=== PATIENT | male | born 1985 | race African-American/Black ===

== ENCOUNTER 2016-09-03 13:35 | Emergency (ER) | payer MEDICAID, OTHER ==
[~2016-09-03] VITALS: Ht 182.9 cm; Wt 79.4 kg
[~2016-09-03 13:35] MED LIST: UNOBMED
[2016-09-03 13:36] VITALS: BP 109/68
[2016-09-03 14:18] VITALS: BP 112/61
[2016-09-03 16:04] VITALS: BP 112/61
--- NOTE | 2016-09-03 21:57 | Emergency Room Report ---
History of Present Illness General Chief Complaint: General Complaint Source: EMS Present Illness HPI The patient is a 31-year-old male brought in by ambulance for possible overdose. The patient states he took an unknown number and unknown names of medications. The patient denies wanting to hurt himself. The patient stated " my body system is operating a 10%". The patient denies any pain and denies other symptoms including nausea, vomiting, headache, dizziness, blurred vision, fatigue, chest pain, shortness of breath Allergies: Uncoded Allergies: CODEINE (Allergy, Unknown, 09/03/16) Patient History Past Medical History: see triage record Pertinent Family History: none Reviewed Nursing Documentation: PMH: Agreed, PSxH: Agreed Review of Systems All Other Systems: negative except mentioned in HPI Physical Exam Vital Signs Date Time Temp Pulse Resp B/P Pulse Ox O2 Delivery O2 Flow Rate FiO2 09/03/16 13:27 116 18 109/68 98 Room Air Sp02 EP Interpretation: reviewed, normal General Appearance: no apparent distress, alert, GCS 15, non-toxic Head: normocephalic, atraumatic Eyes: bilateral eye PERRL, bilateral eye normal inspection ENT: hearing grossly normal, normal pharynx, no angioedema, normal voice Respiratory: chest non-tender, lungs clear, normal breath sounds, speaking full sentences Cardiovascular #1: regular rate, rhythm, no edema Gastrointestinal: normal bowel sounds, non tender, soft, non-distended, no guarding, no rebound Musculoskeletal: back normal, gait/station normal, normal range of motion, non- tender Neurologic: alert, responsive, sensory intact, normal gait Psychiatric: memory normal, no suicidal/homicidal ideation Skin: normal color, no rash, warm/dry, well hydrated Lymphatic: no adenopathy Medical Decision Making PA Attestation Dr. Gunderson is my supervising physician. Patient management was discussed with my supervising physician Diagnostic Impression: Primary Impression: Psychosis ER Course The patient is a 31-year-old male brought in by ambulance for possible overdose Differential diagnoses considered but not limited to suicidal ideation, homicidal ideation, depression, Overdose Physical exam: Afebrile. No apparent distress. Patient is resting comfortably on gurney. HEENT exam is unremarkable Lungs are clear to auscultation bilaterally Abdomen is soft and nontender. No guarding Normal gait The patient is given time to rest in the emergency department and is feeling much better and is more alert and oriented. Patient states he is feeling nauseous and is given Zofran. Upon reevaluation, the patient has eloped Last Vital Signs Date Time Temp Pulse Resp B/P Pulse Ox O2 Delivery O2 Flow Rate FiO2 09/03/16 16:04 18 112/61 98 Room Air 09/03/16 13:27 116 Status: improved Disposition: ELOPED Condition: Unknown Referrals: [facility] (PCP) BLANCA CHAPPELL Sep 03, 2016 21:57
== END 2016-09-03 16:30 | disposition left against medical advice (07) ==
LOC: EDBD 13:35 → EMR 14:02
DX: F23 Brief psychotic disorder (principal); Z88.6 Allergy status to analgesic agent
CPT/HCPCS: 80300; 99282

== ENCOUNTER 2016-09-07 18:39 | Inpatient (IN) | payer MEDICAID, OTHER ==
[~2016-09-07] VITALS: Ht 185.4 cm; Wt 82.6 kg
[2016-09-07 19:06] VITALS: BP 84/48
[2016-09-07 20:13] LABS: BASOPHILS % (AUTO) 1.4 % (0.0-2.0); EOSINOPHILS % (AUTO) 0.7 % (0.0-3.0); LYMPHOCYTES % (AUTO) 22.7 % (20.0-45.0); MEAN CORPUSCULAR HGB CONC 30.4 G/DL (32.0-36.0); MEAN CORPUSCULAR VOLUME 79 FL (80-99); MEAN PLATELET VOLUME 6.2 FL (6.5-10.1); MONOCYTES % (AUTO) 8.9 % (1.0-10.0); NEUTROPHILS % (AUTO) 66.3 % (45.0-75.0); PLATELET COUNT 305 K/UL (150-450); RED BLOOD COUNT 4.48 M/UL (4.70-6.10); RED CELL DISTRIBUTION WIDTH 13.8 % (11.6-14.8); WHITE BLOOD COUNT 6.2 K/UL (4.8-10.8)
[2016-09-07 20:17] LABS: ALANINE AMINOTRANSFERASE 69 U/L (3-41); ALBUMIN/GLOBULIN RATIO 0.9 (1.0-2.7); ANION GAP 13 (5-15); ASPARTATE AMINO TRANSFERASE 43 U/L (5-40); CALCIUM 8.7 mg/dL (8.6-10.2); CARBON DIOXIDE 24 mEQ/L (20-30); CHLORIDE 101 mEQ/L (98-107); CREATININE 1.3 mg/dL (0.7-1.2); GLOMERULAR FILTRATION RATE > 60 mL/min (>60); HEMOLYSIS 23; LIPASE 26 U/L (< 60); POTASSIUM 4.5 mEQ/L (3.4-4.9); SODIUM 138 mEQ/L (135-145); TOTAL PROTEIN 6.1 g/dL (6.6-8.7)
[2016-09-07 20:18] LABS: TROPONIN I < 0.30 ng/mL (<=0.30)
[2016-09-07 20:20] LABS: INR 1.2 (0.9-1.1)
[2016-09-07 21:15] VITALS: BP 135/107
[2016-09-07] MEDS ORDERED: Nitroglycerin Subl 0.4mg tab (Bottle Of 25) SL PRN (21:15)
[2016-09-07] MEDS ORDERED: Mylanta II UD 30ml ORAL PRN (21:15)
[2016-09-07] MEDS ORDERED: Miralax 17gm pkt ORAL PRN (21:15)
[2016-09-07 21:38] LABS: APPEARANCE,URINE CLEAR; KETONES,URINE NEGATIVE (NEGATIVE); LEUKOCYTE ESTERASE ,URINE 1+ (NEGATIVE); NITRITE,URINE NEGATIVE (NEGATIVE); PH,URINE 7 (4.5-8.0); PROTEIN,URINE 2+ (NEGATIVE); UROBILINOGEN,URINE 4 MG/DL (0.0-1.0)
[2016-09-07] MEDS: D5 1/2NS 1,000 ML IV SCH (21:41)
[2016-09-07] MEDS: Morphine Sulfate 2mg/ml Inj IVP PRN (21:42)
[2016-09-07 21:43] LABS: BACTERIA,URINE FEW /HPF; RBC,URINE 0-2 /HPF (0 - 0)
--- NOTE | 2016-09-07 22:34 | Emergency Room Report ---
History of Present Illness General Chief Complaint: Chest Pain Source: Patient Present Illness HPI Patient is a 31-year-old male who presented after increased dizziness and chest pain. Patient reports having prior history of cardiomyopathy. He states he takes diuretics. He does not know why he had heart disease. He states that he had been having severe abdominal cramping. This had occurred for the past few days. He denied black or bloody stools. He had not been having any diarrhea. The patient denies any drug use.He denies prior history of alcohol or drug use. Allergies: Uncoded Allergies: CODEINE (Allergy, Unknown, 09/03/16) Patient History Past Medical History: see triage record Reviewed Nursing Documentation: PMH: Agreed, PSxH: Agreed Nursing Documentation-PMH Hx Asthma: Yes Review of Systems All Other Systems: negative except mentioned in HPI Physical Exam Vital Signs Date Time Temp Pulse Resp B/P Pulse Ox O2 Delivery O2 Flow Rate FiO2 09/07/16 18:59 99.0 111 32 84/48 99 Room Air Sp02 EP Interpretation: reviewed, normal General Appearance: normal inspection, alert, GCS 15, non-toxic, mild distress Head: atraumatic ENT: normal ENT inspection, hearing grossly normal, normal voice Neck: normal inspection, full range of motion, supple, no bony tend Respiratory: normal inspection, lungs clear, normal breath sounds, no respiratory distress, no retraction, no wheezing Cardiovascular #1: regular rate, rhythm, no edema Gastrointestinal: normal inspection, normal bowel sounds, non tender, soft, no guarding, no hernia Genitourinary: no CVA tenderness Musculoskeletal: normal inspection, back normal, normal range of motion Neurologic: normal inspection, alert, oriented x3, responsive, punch finisher III-XII nml as tested, motor strength/tone normal, speech normal Psychiatric: normal inspection, judgement/insight normal, mood/affect normal Skin: normal inspection, normal color, no rash Medical Decision Making Diagnostic Impression: Primary Impression: Chest pain Additional Impression: Hypotension ER Course Patient presented for chest and abdominal pain.Patient presented for abdominal pain. Differential diagnoses included ischemic bowel, appendicitis, perforated viscus, abdominal aortic aneurysm, inferior myocardial infarction, viral gastroenteritis. Because of complexity of patient's case laboratory testing and imaging studies were ordered. The patient was noted to be initially hypotensive. Patient started on IV fluids. Chest x-ray one view interpreted by me showed the enlarged cardiac silhouette without evident infiltrate. Mediastinum appeared normal. There is no evident pneumothorax.Patient was discussed with Dr. gayle for inpatient management due to patient's hypotension and abdominal pain. CT imaging was ordered but will not be performed at this time do to machine malfunction Labs Test 09/07/16 19:44 09/07/16 20:40 White Blood Count 6.2 K/UL (4.8-10.8) Red Blood Count 4.48 M/UL (4.70-6.10) Hemoglobin 10.8 G/DL (14.2-18.0) Hematocrit 35.3 % (42.0-52.0) Mean Corpuscular Volume 79 FL (80-99) Mean Corpuscular Hemoglobin 24.0 PG (27.0-31.0) Mean Corpuscular Hemoglobin Concent 30.4 G/DL (32.0-36.0) Red Cell Distribution Width 13.8 % (11.6-14.8) Platelet Count 305 K/UL (150-450) Mean Platelet Volume 6.2 FL (6.5-10.1) Neutrophils (%) (Auto) 66.3 % (45.0-75.0) Lymphocytes (%) (Auto) 22.7 % (20.0-45.0) Monocytes (%) (Auto) 8.9 % (1.0-10.0) Eosinophils (%) (Auto) 0.7 % (0.0-3.0) Basophils (%) (Auto) 1.4 % (0.0-2.0) Prothrombin Time 12.0 SEC (9.30-11.50) Prothromb Time International Ratio 1.2 (0.9-1.1) Activated Partial Thromboplast Time 24 SEC (23-33) Sodium Level 138 mEQ/L (135-145) Potassium Level 4.5 mEQ/L (3.4-4.9) Chloride Level 101 mEQ/L (98-107) Carbon Dioxide Level 24 mEQ/L (20-30) Anion Gap 13 (5-15) Blood Urea Nitrogen 21 mg/dL (7-23) Creatinine 1.3 mg/dL (0.7-1.2) Estimat Glomerular Filtration Rate > 60 mL/min (>60) Glucose Level 113 mg/dL (74-106) Calcium Level 8.7 mg/dL (8.6-10.2) Total Bilirubin 0.4 mg/dL (0.0-1.2) Aspartate Amino Transf (AST/SGOT) 43 U/L (5-40) Alanine Aminotransferase (ALT/SGPT) 69 U/L (3-41) Alkaline Phosphatase 91 U/L (40-129) Troponin I < 0.30 ng/mL (<=0.30) Total Protein 6.1 g/dL (6.6-8.7) Albumin 2.9 g/dL (3.5-5.2) Globulin 3.2 g/dL Albumin/Globulin Ratio 0.9 (1.0-2.7) Lipase 26 U/L (< 60) Urine Color Yellow Urine Appearance Clear Urine pH 7 (4.5-8.0) Urine Specific [place] 1.010 (1.005-1.035) Urine Protein 2+ (NEGATIVE) Urine Glucose (UA) Negative (NEGATIVE) Urine Ketones Negative (NEGATIVE) Urine Occult Blood Negative (NEGATIVE) Urine Nitrite Negative (NEGATIVE) Urine Bilirubin Negative (NEGATIVE) Urine Urobilinogen 4 MG/DL (0.0-1.0) Urine Leukocyte Esterase 1+ (NEGATIVE) Urine RBC 0-2 /HPF (0 - 0) Urine WBC 2-4 /HPF (0 - 0) Urine Squamous Epithelial Cells None /LPF (NONE/OCC) Urine Bacteria Few /HPF (NONE) EKG Diagnostic Results Rate: normal Rhythm: NSR ST Segments: no acute changes Rhythm Strip Diag. Results EP Interpretation: yes Rhythm: NSR, no PVC's, no ectopy Chest X-Ray Diagnostic Results EP Interpretation: Yes Findings: no consolidation, no effusion, no pneumothorax, other - cm Number of Views: 1 Last Vital Signs Date Time Temp Pulse Resp B/P Pulse Ox O2 Delivery O2 Flow Rate FiO2 09/07/16 21:15 99.0 103 17 135/107 99 Room Air Status: unchanged Disposition: ADMITTED INPATIENT Condition: Serious Referrals: [facility] (PCP) Darien Denton Sep 07, 2016 22:34
[2016-09-07 22:58] VITALS: BP 98/52
[2016-09-08 00:58] VITALS: BP 120/56
[2016-09-08] MEDS: Morphine Sulfate 2mg/ml Inj IVP PRN ×5 (01:58→23:54)
[2016-09-08 02:00] VITALS: BP 100/60
[2016-09-08] MEDS: D5 1/2NS 1,000 ML IV SCH (02:23)
[2016-09-08] MEDS ORDERED: VENTOLIN HFA18 GM (03:08)
[2016-09-08] MEDS ORDERED: FUROSEMIDE20 M1 PO (03:08)
[2016-09-08] MEDS ORDERED: POTASSIUM CHLO10 ME3 PO (03:08)
[2016-09-08 08:33] VITALS: BP 108/72
--- NOTE | 2016-09-08 08:53 | Diagnostic Imaging Report ---
Indication: Abdominal pain Technique: Continuous helical transaxial imaging of the abdomen and pelvis was obtained from the lung bases to the pubic symphysis. No intravenous contrast was administered. Coronal 2-D reformats were also obtained. Total Dose length Product (DLP): [address] Dose Index Volume (CTDIvol): 14 mGy Comparison: none Findings: The appendix is identified and appears normal. There is generalized cardiomegaly. Mild, fine, reticular markings are noted at the periphery of the right lung base nonspecific. There is no nephrolithiasis or hydronephrosis demonstrated. There is thickening of the gallbladder wall. Suspect small stones within the gallbladder. There is no free fluid or free air. Impression: Limited study due to the absence of intravenous and oral contrast material. Thickening of the gallbladder wall. Possible stones. Please correlate clinically for cholecystitis. Normal appendix Reticular markings at the right lung base nonspecific. Acuity indeterminate. Prominent heart size. Please correlate clinically. [facility] has communicated the preliminary results to the Emergency Department. Their findings are largely concordant with this report. The CT scanner at [facility] is accredited by the [employer] [place] [employer] and the scans are performed using protocols designed to limit radiation exposure to as low as reasonably achievable to attain images of sufficient resolution adequate for diagnostic evaluation.
[2016-09-08] MEDS ORDERED: Heparin 5000 units/ml inj SUBQ SCH (09:00)
[2016-09-08 11:23] LABS: BASOPHILS % (AUTO) 0.9 % (0.0-2.0); EOSINOPHILS % (AUTO) 0.4 % (0.0-3.0); LYMPHOCYTES % (AUTO) 26.2 % (20.0-45.0); MEAN CORPUSCULAR HEMOGLOBIN 23.8 PG (27.0-31.0); MEAN CORPUSCULAR HGB CONC 30.3 G/DL (32.0-36.0); MEAN CORPUSCULAR VOLUME 78 FL (80-99); MEAN PLATELET VOLUME 6.2 FL (6.5-10.1); MONOCYTES % (AUTO) 10.4 % (1.0-10.0); NEUTROPHILS % (AUTO) 62.1 % (45.0-75.0); PLATELET COUNT 318 K/UL (150-450); RED BLOOD COUNT 4.65 M/UL (4.70-6.10); RED CELL DISTRIBUTION WIDTH 13.9 % (11.6-14.8); WHITE BLOOD COUNT 6.1 K/UL (4.8-10.8)
[2016-09-08 11:36] LABS: ALANINE AMINOTRANSFERASE 74 U/L (3-41); ALBUMIN/GLOBULIN RATIO 0.8 (1.0-2.7); AMYLASE 80 U/L (10-110); ANION GAP 12 (5-15); ASPARTATE AMINO TRANSFERASE 46 U/L (5-40); CALCIUM 8.6 mg/dL (8.6-10.2); CARBON DIOXIDE 23 mEQ/L (20-30); CHLORIDE 104 mEQ/L (98-107); GLOMERULAR FILTRATION RATE > 60 mL/min (>60); HEMOLYSIS 0; LIPASE 24 U/L (< 60); POTASSIUM 4.5 mEQ/L (3.4-4.9); SODIUM 139 mEQ/L (135-145); TOTAL PROTEIN 6.2 g/dL (6.6-8.7)
[2016-09-08 11:53] VITALS: BP 86/57
--- NOTE | 2016-09-08 12:01 | Diagnostic Imaging Report ---
Indication: Dyspnea Comparison: None A single view chest radiograph was obtained. Findings: Heart size is prominent. Lungs are clear with normal vascularity. Costophrenic angles are clear. Bones are unremarkable. Impression: Prominent heart size considering age of the patient. Please correlate clinically.
[2016-09-08 16:00] VITALS: BP 109/74
--- NOTE | 2016-09-08 16:15 | Diagnostic Imaging Report ---
Indication:Abdominal pain Technique: Grayscale and duplex Doppler imaging of the abdomen performed. Comparison: None Findings: The demonstrated part of the pancreas, gallbladder, aorta and IVC, spleen appear unremarkable. The liver is enlarged measuring about 20 cm. There is a subtle echogenic focus in the midpole the right kidney. This could be a angiomyolipoma or a focus of fat i.e. Renal scarring . There is no biliary ductal dilatation identified. CBD is 5 mm. Doppler evaluation of the main portal vein shows patency. There is no ascites. No hydronephrosis seen. Impression: Hepatomegaly Focus of scarring versus small angiomyolipoma in the midpole right kidney.
--- NOTE | 2016-09-08 16:47 | History and Physical ---
History of Present Illness General Date patient seen: Sep 08, 2016 Reason for Hospitalization: Chest Pain Present Illness HPI 31-year-old male with hx of cardiomyopathy presented to ER with CC of increased dizziness and chest pain. He does not know why he had heart disease. He states that he had been having severe abdominal cramping. He denied black or bloody stools. The patient denies any drug use.He denies prior history of alcohol or drug use. Allergies: Coded Allergies: CODEINE (Unverified Allergy, Unknown, 09/08/16) SHELLFISH DERIVED (Unverified Allergy, Unknown, 09/08/16) Uncoded Allergies: CODEINE (Allergy, Unknown, 09/03/16) SHELLFISH (Allergy, Unknown, 09/07/16) Medication History Scheduled Furosemide* (Lasix*), 20 MG PO BID, (Reported) Potassium Chloride (Potassium Chloride), 10 MEQ PO BID, (Reported) Scheduled PRN Albuterol Sulfate (Ventolin Hfa), 1 PUFF Q6HR PRN for PRN, (Reported) Miscellaneous Medications Unable to Obtain Medications (Unable To Obtain Meds), (Reported) Patient History Healthcare decision maker pt alert and oriented Resuscitation status Full Code Advanced Directive on File Past Medical/Surgical History Past Medical/Surgical History: (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 (2) Psychosis Review of Systems All Other Systems: negative except mentioned in HPI Physical Exam General Appearance: WD/WN Lines, tubes and drains: peripheral HEENT: normocephalic, atraumatic Neck: non-tender, normal alignment Respiratory/Chest: chest wall non-tender, lungs clear Cardiovascular/Chest: normal peripheral pulses Abdomen: normal bowel sounds Genitourinary/Rectal: normal genital exam Extremities: normal range of motion Skin Exam: normal pigmentation Neurologic: hoop maker machine II-XII grossly normal Last 24 Hour Vital Signs Date Time Temp Pulse Resp B/P Pulse Ox O2 Delivery O2 Flow Rate FiO2 09/08/16 16:00 96.8 110 19 109/74 96 Room Air 09/08/16 11:53 97.5 108 18 86/57 95 Room Air 09/08/16 11:26 108 09/08/16 08:33 97.0 108 18 108/72 96 Room Air 09/08/16 07:54 115 09/08/16 04:00 109 09/08/16 02:00 109 09/08/16 02:00 97.3 109 22 100/60 90 Room Air 09/08/16 00:58 99.1 103 24 120/56 99 Room Air 09/07/16 23:27 99.0 100 17 98/52 99 Room Air 09/07/16 22:58 99.0 100 17 98/52 99 Room Air 09/07/16 22:12 99.0 09/07/16 21:15 99.0 103 17 135/107 99 Room Air 09/07/16 19:06 111 32 Room Air 09/07/16 19:06 99.0 84 32 84/48 99 Room Air 09/07/16 18:59 99.0 111 32 84/48 99 Room Air Intake and Output 09/07/16 09/08/16 19:00 07:00 Intake Total 375 ml Output Total 200 ml Balance 175 ml Intake IV Total 375 ml Output Urine Total 200 ml # Voids 1 Laboratory Tests Test 09/07/16 19:44 09/07/16 20:40 09/08/16 10:40 White Blood Count 6.2 K/UL (4.8-10.8) 6.1 K/UL (4.8-10.8) Red Blood Count 4.48 M/UL (4.70-6.10) L 4.65 M/UL (4.70-6.10) L Hemoglobin 10.8 G/DL (14.2-18.0) L 11.1 G/DL (14.2-18.0) L Hematocrit 35.3 % (42.0-52.0) L 36.5 % (42.0-52.0) L Mean Corpuscular Volume 79 FL (80-99) L 78 FL (80-99) L Mean Corpuscular Hemoglobin 24.0 PG (27.0-31.0) L 23.8 PG (27.0-31.0) L Mean Corpuscular Hemoglobin Concent 30.4 G/DL (32.0-36.0) L 30.3 G/DL (32.0-36.0) L Red Cell Distribution Width 13.8 % (11.6-14.8) 13.9 % (11.6-14.8) Platelet Count 305 K/UL (150-450) 318 K/UL (150-450) Mean Platelet Volume 6.2 FL (6.5-10.1) L 6.2 FL (6.5-10.1) L Neutrophils (%) (Auto) 66.3 % (45.0-75.0) 62.1 % (45.0-75.0) Lymphocytes (%) (Auto) 22.7 % (20.0-45.0) 26.2 % (20.0-45.0) Monocytes (%) (Auto) 8.9 % (1.0-10.0) 10.4 % (1.0-10.0) H Eosinophils (%) (Auto) 0.7 % (0.0-3.0) 0.4 % (0.0-3.0) Basophils (%) (Auto) 1.4 % (0.0-2.0) 0.9 % (0.0-2.0) Prothrombin Time 12.0 SEC (9.30-11.50) H Prothromb Time International Ratio 1.2 (0.9-1.1) H Activated Partial Thromboplast Time 24 SEC (23-33) 24 SEC (23-33) Sodium Level 138 mEQ/L (135-145) 139 mEQ/L (135-145) Potassium Level 4.5 mEQ/L (3.4-4.9) 4.5 mEQ/L (3.4-4.9) Chloride Level 101 mEQ/L (98-107) 104 mEQ/L (98-107) Carbon Dioxide Level 24 mEQ/L (20-30) 23 mEQ/L (20-30) Anion Gap 13 (5-15) 12 (5-15) Blood Urea Nitrogen 21 mg/dL (7-23) 20 mg/dL (7-23) Creatinine 1.3 mg/dL (0.7-1.2) H 1.0 mg/dL (0.7-1.2) Estimat Glomerular Filtration Rate > 60 mL/min (>60) > 60 mL/min (>60) Glucose Level 113 mg/dL (74-106) H 108 mg/dL (74-106) H Calcium Level 8.7 mg/dL (8.6-10.2) 8.6 mg/dL (8.6-10.2) Total Bilirubin 0.4 mg/dL (0.0-1.2) 0.6 mg/dL (0.0-1.2) Aspartate Amino Transf (AST/SGOT) 43 U/L (5-40) H 46 U/L (5-40) H Alanine Aminotransferase (ALT/SGPT) 69 U/L (3-41) H 74 U/L (3-41) H Alkaline Phosphatase 91 U/L (40-129) 103 U/L (40-129) Troponin I < 0.30 ng/mL (<=0.30) Total Protein 6.1 g/dL (6.6-8.7) L 6.2 g/dL (6.6-8.7) L Albumin 2.9 g/dL (3.5-5.2) L 2.9 g/dL (3.5-5.2) L Globulin 3.2 g/dL 3.3 g/dL Albumin/Globulin Ratio 0.9 (1.0-2.7) L 0.8 (1.0-2.7) L Lipase 26 U/L (< 60) 24 U/L (< 60) Urine Color Yellow Urine Appearance Clear Urine pH 7 (4.5-8.0) Urine Specific [place] 1.010 (1.005-1.035) Urine Protein 2+ (NEGATIVE) H Urine Glucose (UA) Negative (NEGATIVE) Urine Ketones Negative (NEGATIVE) Urine Occult Blood Negative (NEGATIVE) Urine Nitrite Negative (NEGATIVE) Urine Bilirubin Negative (NEGATIVE) Urine Urobilinogen 4 MG/DL (0.0-1.0) H Urine Leukocyte Esterase 1+ (NEGATIVE) H Urine RBC 0-2 /HPF (0 - 0) H Urine WBC 2-4 /HPF (0 - 0) Urine Squamous Epithelial Cells None /LPF (NONE/OCC) Urine Bacteria Few /HPF (NONE) Amylase Level 80 U/L (10-110) Height (Feet): 6 Height (Inches): 1.00 Weight (Pounds): 182 Medications Current Medications Medications (Trade) Dose Ordered Sig/Katie Route PRN Reason Start Time Stop Time Status Last Admin Dose Admin Acetaminophen (Tylenol) 650 mg Q4H PRN ORAL fever 09/07/16 21:15 10/07/16 21:14 Al Hydroxide/Mg Hydroxide (Mylanta II) 30 ml Q6H PRN ORAL dyspepsia 09/07/16 21:15 10/07/16 21:14 Dextrose (Dextrose 50%) STAT PRN IV Hypoglycemia 09/07/16 21:15 10/07/16 21:14 Dextrose/Sodium Chloride (D5 0.45% NS) 1,000 ml @ 75 mls/hr [id number] IV 09/07/16 22:00 10/07/16 21:59 09/08/16 02:23 Diphenhydramine HCl (Benadryl) 25 mg Q6H PRN ORAL Itching/Pruritis 09/07/16 21:15 10/07/16 21:14 09/08/16 02:23 Heparin Sodium (Porcine) (Heparin 5000 units/ml) 5,000 units EVERY 12 HOURS SUBQ 09/08/16 09:00 10/08/16 08:59 09/08/16 08:36 Morphine Sulfate (Morphine Sulfate) 2 mg EVERY 4 HOURS PRN IVP severe Pain (Pain Scale 7-10) 09/07/16 21:15 09/14/16 21:14 09/08/16 14:32 Nitroglycerin (Ntg) 0.4 mg Q5M X 3 DOSES PRN SL Prn Chest Pain 09/07/16 21:15 10/07/16 21:14 Ondansetron HCl (Zofran) 4 mg Q6H PRN IVP Nausea & Vomiting 09/07/16 21:15 10/07/16 21:14 Polyethylene Glycol (Miralax) 17 gm HSPRN PRN ORAL Constipation 09/07/16 21:15 10/07/16 21:14 Temazepam (Restoril) 15 mg HSPRN PRN ORAL Insomnia 09/07/16 21:15 09/14/16 21:14 Assessment/Plan Problem List: (1) Abdominal pain ICD Codes: R10.9 - Unspecified abdominal pain SNOMED: 58320367 (2) Hypotension ICD Codes: I95.9 - Hypotension, unspecified SNOMED: 29233484 (3) Intractable abdominal pain ICD Codes: R10.9 - Unspecified abdominal pain SNOMED: 93679336, 946305483 Assessment/Plan NPO GI evaluation cardiac evaluation check stool RENEE LEYVA Sep 08, 2016 16:47
--- NOTE | 2016-09-08 17:59 | Cardiology Progress Note ---
Assessment/Plan Assessment/Plan chronic chf with acute componetn atypical chest pain hiv asthma hx pt not cooperative with e/m d/c ivf check echo if thrombus confirmed need diuretics but complaince and issue acei as bp allow bb need hiv [id number] Objective Last 24 Hour Vital Signs Date Time Temp Pulse Resp B/P Pulse Ox O2 Delivery O2 Flow Rate FiO2 09/08/16 16:00 96.8 110 19 109/74 96 Room Air 09/08/16 11:53 97.5 108 18 86/57 95 Room Air 09/08/16 11:26 108 09/08/16 08:33 97.0 108 18 108/72 96 Room Air 09/08/16 07:54 115 09/08/16 04:00 109 09/08/16 02:00 109 09/08/16 02:00 97.3 109 22 100/60 90 Room Air 09/08/16 00:58 99.1 103 24 120/56 99 Room Air 09/07/16 23:27 99.0 100 17 98/52 99 Room Air 09/07/16 22:58 99.0 100 17 98/52 99 Room Air 09/07/16 22:12 99.0 09/07/16 21:15 99.0 103 17 135/107 99 Room Air 09/07/16 19:06 111 32 Room Air 09/07/16 19:06 99.0 84 32 84/48 99 Room Air 09/07/16 18:59 99.0 111 32 84/48 99 Room Air Intake and Output 09/07/16 09/08/16 19:00 07:00 Intake Total 375 ml Output Total 200 ml Balance 175 ml Intake IV Total 375 ml Output Urine Total 200 ml # Voids 1 Laboratory Tests Test 09/07/16 19:44 09/07/16 20:40 09/08/16 10:40 White Blood Count 6.2 K/UL (4.8-10.8) 6.1 K/UL (4.8-10.8) Red Blood Count 4.48 M/UL (4.70-6.10) L 4.65 M/UL (4.70-6.10) L Hemoglobin 10.8 G/DL (14.2-18.0) L 11.1 G/DL (14.2-18.0) L Hematocrit 35.3 % (42.0-52.0) L 36.5 % (42.0-52.0) L Mean Corpuscular Volume 79 FL (80-99) L 78 FL (80-99) L Mean Corpuscular Hemoglobin 24.0 PG (27.0-31.0) L 23.8 PG (27.0-31.0) L Mean Corpuscular Hemoglobin Concent 30.4 G/DL (32.0-36.0) L 30.3 G/DL (32.0-36.0) L Red Cell Distribution Width 13.8 % (11.6-14.8) 13.9 % (11.6-14.8) Platelet Count 305 K/UL (150-450) 318 K/UL (150-450) Mean Platelet Volume 6.2 FL (6.5-10.1) L 6.2 FL (6.5-10.1) L Neutrophils (%) (Auto) 66.3 % (45.0-75.0) 62.1 % (45.0-75.0) Lymphocytes (%) (Auto) 22.7 % (20.0-45.0) 26.2 % (20.0-45.0) Monocytes (%) (Auto) 8.9 % (1.0-10.0) 10.4 % (1.0-10.0) H Eosinophils (%) (Auto) 0.7 % (0.0-3.0) 0.4 % (0.0-3.0) Basophils (%) (Auto) 1.4 % (0.0-2.0) 0.9 % (0.0-2.0) Prothrombin Time 12.0 SEC (9.30-11.50) H Prothromb Time International Ratio 1.2 (0.9-1.1) H Activated Partial Thromboplast Time 24 SEC (23-33) 24 SEC (23-33) Sodium Level 138 mEQ/L (135-145) 139 mEQ/L (135-145) Potassium Level 4.5 mEQ/L (3.4-4.9) 4.5 mEQ/L (3.4-4.9) Chloride Level 101 mEQ/L (98-107) 104 mEQ/L (98-107) Carbon Dioxide Level 24 mEQ/L (20-30) 23 mEQ/L (20-30) Anion Gap 13 (5-15) 12 (5-15) Blood Urea Nitrogen 21 mg/dL (7-23) 20 mg/dL (7-23) Creatinine 1.3 mg/dL (0.7-1.2) H 1.0 mg/dL (0.7-1.2) Estimat Glomerular Filtration Rate > 60 mL/min (>60) > 60 mL/min (>60) Glucose Level 113 mg/dL (74-106) H 108 mg/dL (74-106) H Calcium Level 8.7 mg/dL (8.6-10.2) 8.6 mg/dL (8.6-10.2) Total Bilirubin 0.4 mg/dL (0.0-1.2) 0.6 mg/dL (0.0-1.2) Aspartate Amino Transf (AST/SGOT) 43 U/L (5-40) H 46 U/L (5-40) H Alanine Aminotransferase (ALT/SGPT) 69 U/L (3-41) H 74 U/L (3-41) H Alkaline Phosphatase 91 U/L (40-129) 103 U/L (40-129) Troponin I < 0.30 ng/mL (<=0.30) Total Protein 6.1 g/dL (6.6-8.7) L 6.2 g/dL (6.6-8.7) L Albumin 2.9 g/dL (3.5-5.2) L 2.9 g/dL (3.5-5.2) L Globulin 3.2 g/dL 3.3 g/dL Albumin/Globulin Ratio 0.9 (1.0-2.7) L 0.8 (1.0-2.7) L Lipase 26 U/L (< 60) 24 U/L (< 60) Urine Color Yellow Urine Appearance Clear Urine pH 7 (4.5-8.0) Urine Specific [place] 1.010 (1.005-1.035) Urine Protein 2+ (NEGATIVE) H Urine Glucose (UA) Negative (NEGATIVE) Urine Ketones Negative (NEGATIVE) Urine Occult Blood Negative (NEGATIVE) Urine Nitrite Negative (NEGATIVE) Urine Bilirubin Negative (NEGATIVE) Urine Urobilinogen 4 MG/DL (0.0-1.0) H Urine Leukocyte Esterase 1+ (NEGATIVE) H Urine RBC 0-2 /HPF (0 - 0) H Urine WBC 2-4 /HPF (0 - 0) Urine Squamous Epithelial Cells None /LPF (NONE/OCC) Urine Bacteria Few /HPF (NONE) Amylase Level 80 U/L (10-110) BAUDILIO GROSSMAN Sep 08, 2016 17:59
[2016-09-08 19:41] LABS: TROPONIN I < 0.30 ng/mL (<=0.30)
[2016-09-08 20:00] VITALS: BP 98/68
--- NOTE | 2016-09-08 20:21 | Cardiology Report ---
APPROVED REPORT EXAM: Two-dimensional and M-mode echocardiogram with Doppler and color Doppler. INDICATION LV function M-Mode DIMENSIONS IVSd0.9 (0.7-1.1cm)Left Atrium (MM)3.2 (1.6-4.0cm) LVDd6.9 (3.5-5.6cm)Aortic Root3.1 (2.0-3.7cm) PWd0.8 (0.7-1.1cm)Aortic Cusp Exc.2.1 (1.5-2.0cm) LVDs6.4 (2.5-4.0cm) PWs1.0 cm Four chamber dialatation. Global left ventricular severe hypokinesis. Left ventricular ejection fraction estimated to be less than 15-20 %. Echogenic material noted at LV apex. Can not exclude apical thrombus. No evidence of left ventricular hypertrophy. Small posterior pericardial effusion. Mild focal aortic valve sclerosis with adequate cusp excursion. Mildly thickened mitral valve leaflets with normal excursion. Mitral annulus and aortic root calcification. Pulmonic valve not well visualized. Normal tricuspid valve structure. IVC dilated at 2.7 cm without physiologic collapse suggestive of RA pressure at least 20 mmHg.. A color flow and spectral Doppler study was performed and revealed: No aortic regurgitation. Moderate mitral regurgitation. Mitral inflow indicates restrictive pattern, implying severely elevated left atrial pressure (Grade III ). Moderate tricuspid regurgitation. Tricuspid systolic velocities suggests peak right ventricular systolic pressure of 57 mmHg, consistent with moderate to severe pulmonary hypertension. No pulmonic regurgitation present. Notified Dr. Liu by Klaus 12:05 pm September 08, 2016.
--- NOTE | 2016-09-08 20:38 | Consultation ---
DATE OF CONSULTATION: 09/08/2016 CONSULTING PHYSICIAN: Alan Yoder M.D. REFERRING PHYSICIAN: Elisa Liu M.D. CHIEF COMPLAINT: Abdominal pain. HISTORY OF PRESENT ILLNESS: This 31 years male admitted to the hospital complaining of dizziness, chest pain, abdominal pain, mostly on the left side. Denies any vomiting. Denies any hematemesis. No dysphagia. No odynophagia. No melena. No hematochezia. PAST MEDICAL HISTORY: Significant for, 1. History of cardiac disorder including CHF and cardiomyopathy. 2. Hypotension. 3. Asthma. 4. HIV. 5. Anxiety. 6. Depression. ALLERGIES: To codeine and shellfish. MEDICATIONS: Please see medication reconciliation list. SOCIAL HISTORY: The patient denies any tobacco, alcohol, or drug abuse. FAMILY HISTORY: Noncontributory. REVIEW OF SYSTEMS: A 10-point review of systems was performed and pertinent positives as mentioned in history of present illness. PHYSICAL EXAMINATION: VITAL SIGNS: Temperature 97.5 degrees, pulse is 108, respirations 18, and blood pressure is 86/57. HEENT: Normocephalic and atraumatic. Sclerae anicteric. NECK: Supple. No JVD. No lymphadenopathy. CARDIOVASCULAR: Regular rhythm. Plus S1 and S2. LUNGS: Decreased breath sounds bilaterally based on supine exam. ABDOMEN: Soft. There is tenderness to palpation in the left upper quadrant. No rebound. No guarding. No peritoneal sign. Bowel sounds are present. EXTREMITIES: No cyanosis, clubbing, or edema. LABORATORY DATA: White blood cell count 6.1, hemoglobin 11.1, hematocrit 36.5, and platelet count is 318,000. Liver function tests, AST was 46, ALT of 74, alkaline phosphatase 103, and total bilirubin is 0.6. IMAGING STUDIES: The patient had a CT of the abdomen and pelvis done without contrast, which showed limited study, thickening of the gallbladder wall, possible stone. PLAN: 1. Anemia workup. 2. Pain management. 3. Follow up abdominal ultrasound 4. Repeat labs for tomorrow. 5. Consider surgical consultation if there is a suspicion for acute cholecystitis. I want to thank, Dr. Liu, for kind referral. Alan Vandana Yoder DR: KAROLINE JOB#: [id number] CC: Elisa Liu M.D.; Fax#: [phone]
[2016-09-08] MEDS ORDERED: Heparin 25,000u/D5W 500ml 500 ML IV SCH (21:00)
[2016-09-08] MEDS ORDERED: Heparin 5000 units/ml inj IV ONE (21:00)
--- NOTE | 2016-09-08 21:38 | Consultation ---
DATE OF CONSULTATION: CARDIOLOGY CONSULTATION CHIEF COMPLAINT: Cardiomyopathy. HISTORY OF PRESENT ILLNESS: The patient is a 31-year-old gentleman who presents to the hospital with shortness of breath. He has been told that he has congestive heart failure a few weeks ago, at [facility]. He has not seen a doctor as outpatient yet. He has been in increasing shortness of breath, waking up at night because of shortness of breath and shortness with exertion, but he mainly came to the hospital because of pain that he has been experiencing throughout his chest and abdomen that seems to get worse with twisting, turning, taking a deep breath and coughing. The pain is described as sharp and constantly present and no other relieving or exacerbating factor identified the patient. PAST MEDICAL HISTORY: Positive for congestive heart failure, asthma, and human immunodeficiency virus. He denies any heart attacks or cancer, stroke, diabetes, high blood pressure, hepatitis, tuberculosis, ulcers, kidney and liver problems, thyroid problems, anemia, arthritis, or blood clots in which he is allergic to codeine. SOCIAL HISTORY: He uses one pack of cigarettes per week. Occasionally drinks alcoholic beverages. Denies any drug use except for marijuana. REVIEW OF SYSTEMS: Gastrointestinal: He does have some abdominal pain. Genitourinary System: Negative. PHYSICAL EXAMINATION: GENERAL: Shows a middle-aged gentleman, in no respiratory distress. It is very hard for him to allow me to examine him for various reasons of the examination. NECK: Supple. Carotid upstrokes intact. LUNGS: Seem to have decreased breath sounds, but it is difficult to tell whether that is basically because of his effort or lack of placing a barefoot. CARDIAC: Examination regular rate and rhythm. Holosystolic regurgitant murmur noted. ABDOMEN: Soft. He does not like the feeling. He tells me that it has been tender in his abdomen. EXTREMITIES: There is no edema. NEUROLOGIC: He is awake and responsive. LABORATORY VALUES: Urine drug screen is positive for opiates. His sodium 139, potassium 4.5, chloride 112, bicarbonate 23, BUN 20, creatinine 1.0, glucose of 188, and calcium is 8.6. AST and ALT minimally abnormal and low albumin 2.9. Troponin less than 0.04. Amylase and lipase were both normal. Coags - INR 1.1 and PTT of 24. White count is 6.9, hemoglobin 0.5, and platelet count of 308,000. His urinalysis is 0 to 2, RBC 2 to 4 WBCs. He has had imaging that was performed and abdominal ultrasound was performed that shows thyromegaly. The focus of the scarring versus small angiolipoma. A CT scan of the abdomen shows limited study due to the absence of intravenous and oral material thickening gallbladder wall, positive stone cause reticular markings in the right nonspecific acute indeterminate prominent high size. Wally Oh M.D. DR: KYARA JOB#: [id number] CC:
--- NOTE | 2016-09-08 21:48 | Consultation ---
DATE OF CONSULTATION: ADDENDUM LABORATORY VALUES: Echocardiogram has been performed showed four-chamber global hypokinesis with severely decreased ejection fraction of 10%. Echogenic material in the apex and the preliminary report needs to be reviewed. regurgitation restricted moderate tricuspid regurgitation. Pulmonary systolic pressure of 57. EKG has been performed showing sinus rhythm with diffuse T-wave abnormalities. The patient's laboratory values show one set of cardiac exam that was negative to be repeated. ASSESSMENT: 1. Atypical sharp chest pain. 2. Known cardiomyopathy. 3. Known congestive heart failure with acute on chronic exacerbation. 4. Pulmonary hypertension. 5. HIV. 6. Asthma. 7. Questionable left ventricular thrombus. PLAN: Dr. Liu, this patient was seen in cardiac consultation. The patient is very uncooperative with evaluations and management. Further recommendations based on what I was able to obtain. The patient's blood pressure is anywhere between 85 to 109. I would continue him on medications for congestive heart failure as the patient's blood pressure and kidney function allow. I will discontinue use of intravenous fluids at the present time and I will review his echocardiogram to see if left ventricle thrombus is present. If indeed is present that he needs to be on anticoagulation for stroke prevention. However, compliance may be a question for me in this patient that is less than fully cooperative for various reasons. Wally Oh M.D. DR: KYARA JOB#: [id number] CC:
[2016-09-09 04:00] VITALS: BP 101/65
[2016-09-09] MEDS: Morphine Sulfate 2mg/ml Inj IVP PRN ×5 (04:06→20:59)
[2016-09-09 04:34] LABS: BASOPHILS % (AUTO) 0.6 % (0.0-2.0); EOSINOPHILS % (AUTO) 0.1 % (0.0-3.0); LYMPHOCYTES % (AUTO) 20.4 % (20.0-45.0); MEAN CORPUSCULAR HEMOGLOBIN 23.6 PG (27.0-31.0); MEAN CORPUSCULAR HGB CONC 30.7 G/DL (32.0-36.0); MEAN CORPUSCULAR VOLUME 77 FL (80-99); MEAN PLATELET VOLUME 6.4 FL (6.5-10.1); MONOCYTES % (AUTO) 9.8 % (1.0-10.0); NEUTROPHILS % (AUTO) 69.1 % (45.0-75.0); PLATELET COUNT 345 K/UL (150-450); RED CELL DISTRIBUTION WIDTH 13.9 % (11.6-14.8); WHITE BLOOD COUNT 10.4 K/UL (4.8-10.8)
[2016-09-09] MEDS: Heparin 25,000u/D5W 500ml 500 ML IV SCH ×2 (05:38→14:34)
[2016-09-09 05:48] LABS: ALANINE AMINOTRANSFERASE 58 U/L (3-41); ALBUMIN/GLOBULIN RATIO 0.8 (1.0-2.7); ANION GAP 12 (5-15); ASPARTATE AMINO TRANSFERASE 35 U/L (5-40); CALCIUM 8.7 mg/dL (8.6-10.2); CARBON DIOXIDE 23 mEQ/L (20-30); CHLORIDE 100 mEQ/L (98-107); CREATININE 1.2 mg/dL (0.7-1.2); GLOMERULAR FILTRATION RATE > 60 mL/min (>60); POTASSIUM 4.9 mEQ/L (3.4-4.9); SODIUM 135 mEQ/L (135-145); TOTAL PROTEIN 6.1 g/dL (6.6-8.7)
[2016-09-09] MEDS ORDERED: Heparin 5000 units/ml inj IV ONE (06:00)
[2016-09-09 06:08] LABS: HEMOLYSIS 7; IRON 29 ug/dL (59-158); TOTAL IRON BINDING CAPACITY 349 ug/dL (250-400)
[2016-09-09 08:22] VITALS: BP 104/66
--- NOTE | 2016-09-09 11:06 | General Progress Note ---
Assessment/Plan Problem List: (1) Iron deficiency anemia ICD Codes: D50.9 - Iron deficiency anemia, unspecified SNOMED: 87231412 (2) Abdominal pain ICD Codes: R10.9 - Unspecified abdominal pain SNOMED: 15579637 (3) Psychosis ICD Codes: F29 - Unspecified psychosis not due to a substance or known physiological condition SNOMED: 14588534 Assessment/Plan iv iron fu H&H fu stool pain control advance diet Subjective ROS Limited/Unobtainable: Yes Allergies: Coded Allergies: CODEINE (Unverified Allergy, Unknown, 09/08/16) SHELLFISH DERIVED (Unverified Allergy, Unknown, 09/08/16) Uncoded Allergies: CODEINE (Allergy, Unknown, 09/03/16) SHELLFISH (Allergy, Unknown, 09/07/16) Subjective wants to eat Objective Last 24 Hour Vital Signs Date Time Temp Pulse Resp B/P Pulse Ox O2 Delivery O2 Flow Rate FiO2 09/09/16 08:33 116 104/66 09/09/16 08:22 98.4 116 18 104/66 97 Room Air 09/09/16 04:00 98.8 117 20 101/65 96 Room Air 09/09/16 04:00 117 09/09/16 00:00 113 09/08/16 20:00 112 09/08/16 20:00 97.8 108 21 98/68 96 Room Air 09/08/16 19:00 116 112/74 09/08/16 16:00 96.8 110 19 109/74 96 Room Air 09/08/16 16:00 107 09/08/16 11:53 97.5 108 18 86/57 95 Room Air 09/08/16 11:26 108 Intake and Output 09/08/16 09/09/16 19:00 07:00 Intake Total 675 ml 304.996 ml Output Total 800 ml Balance 675 ml -495.004 ml Intake IV Total 675 ml 304.996 ml Output Urine Total 800 ml # Voids 1 Laboratory Tests 09/08/16 19:05: Troponin I < 0.30 09/09/16 00:00: Urine Opiates Screen PositiveH, Urine Barbiturates Screen Negative, Phencyclidine (PCP) Screen Negative, Urine Amphetamines Screen PositiveH, Urine Benzodiazepines Screen Negative, Urine Cocaine Screen Negative, Urine Marijuana (THC) Screen Negative 09/09/16 04:00: White Blood Count 10.4#, Red Blood Count 4.70, Hemoglobin 11.1L, Hematocrit 36.1L, Mean Corpuscular Volume 77L, Mean Corpuscular Hemoglobin 23.6L, Mean Corpuscular Hemoglobin Concent 30.7L, Red Cell Distribution Width 13.9, Platelet Count 345, Mean Platelet Volume 6.4L, Neutrophils (%) (Auto) 69.1, Lymphocytes (%) (Auto) 20.4, Monocytes (%) (Auto) 9.8, Eosinophils (%) (Auto) 0.1, Basophils (%) (Auto) 0.6, Activated Partial Thromboplast Time 43H, Sodium Level 135, Potassium Level 4.9, Chloride Level 100, Carbon Dioxide Level 23, Anion Gap 12, Blood Urea Nitrogen 17, Creatinine 1.2, Estimat Glomerular Filtration Rate > 60, Glucose Level 96, Calcium Level 8.7, Iron Level 29L, Total Iron Binding Capacity 349, Percent Iron Saturation 8L, Unsaturated Iron Binding 320, Total Bilirubin 0.8, Aspartate Amino Transf (AST/SGOT) 35, Alanine Aminotransferase (ALT/SGPT) 58H, Alkaline Phosphatase 95, Total Protein 6.1L, Albumin 2.8L, Globulin 3.3, Albumin/Globulin Ratio 0.8L, Vitamin B12 Level 505, Folate [Pending], Hepatitis A IgM Antibody [Pending], Hepatitis B Surface Antigen [Pending], Hepatitis B Core IgM Antibody [Pending], Hepatitis C Antibody [Pending] Height (Feet): 6 Height (Inches): 1.00 Weight (Pounds): 182 General Appearance: alert EENT: normal ENT inspection Neck: supple Cardiovascular: normal rate Respiratory/Chest: lungs clear Abdomen: soft, hypoactive bowel sounds, tender Extremities: non-tender BECCA LAKE Sep 09, 2016 11:06
[2016-09-09 11:31] VITALS: BP 101/73
[2016-09-09 16:00] VITALS: BP 104/72
[2016-09-09] MEDS ORDERED: D5 1/2NS 1000ml IV ONE (18:12)
--- NOTE | 2016-09-09 18:36 | Cardiology Progress Note ---
Assessment/Plan Assessment/Plan chronic chf with acute componetn atypical chest pain hiv asthma hx LV thrombus d/c ivf echo noted LV thrombus suspected is now on heparin nwo and will start coumadin today as well zaki moreno discussed with pt the need for frequent blodo tst monitoring and multiple interaction with diet adn other med will have pharmacy adn rn provided Coumadin pt infor for pt to reviwed risk of cva if untreated d/w with pt acei if bp allow s on low dose bb need hiv fu d/w dr ledezma Subjective Cardiovascular: Denies: chest pain, lightheadedness Respiratory: Reports: shortness of breath Gastrointestinal/Abdominal: Denies: abdominal pain Genitourinary: Denies: burning Objective Last 24 Hour Vital Signs Date Time Temp Pulse Resp B/P Pulse Ox O2 Delivery O2 Flow Rate FiO2 09/09/16 16:00 97.9 114 21 104/72 98 Room Air 09/09/16 11:54 123 09/09/16 11:31 98.2 113 18 101/73 97 Room Air 09/09/16 08:33 116 104/66 09/09/16 08:22 98.4 116 18 104/66 97 Room Air 09/09/16 07:44 113 09/09/16 04:00 98.8 117 20 101/65 96 Room Air 09/09/16 04:00 117 09/09/16 00:00 113 09/08/16 20:00 112 09/08/16 20:00 97.8 108 21 98/68 96 Room Air 09/08/16 19:00 116 112/74 General Appearance: no apparent distress Neck: supple Cardiovascular: normal rate, regular rhythm Respiratory/Chest: lungs clear Abdomen: non tender, soft Extremities: no swelling Intake and Output 09/08/16 09/09/16 19:00 07:00 Intake Total 675 ml 304.996 ml Output Total 800 ml Balance 675 ml -495.004 ml Intake IV Total 675 ml 304.996 ml Output Urine Total 800 ml # Voids 1 Laboratory Tests Test 09/08/16 19:05 09/09/16 00:00 09/09/16 04:00 09/09/16 11:30 Troponin I < 0.30 ng/mL (<=0.30) Urine Opiates Screen Positive (NEGATIVE) H Urine Barbiturates Screen Negative (NEGATIVE) Phencyclidine (PCP) Screen Negative (NEGATIVE) Urine Amphetamines Screen Positive (NEGATIVE) H Urine Benzodiazepines Screen Negative (NEGATIVE) Urine Cocaine Screen Negative (NEGATIVE) Urine Marijuana (THC) Screen Negative (NEGATIVE) White Blood Count 10.4 K/UL (4.8-10.8) # Red Blood Count 4.70 M/UL (4.70-6.10) Hemoglobin 11.1 G/DL (14.2-18.0) L Hematocrit 36.1 % (42.0-52.0) L Mean Corpuscular Volume 77 FL (80-99) L Mean Corpuscular Hemoglobin 23.6 PG (27.0-31.0) L Mean Corpuscular Hemoglobin Concent 30.7 G/DL (32.0-36.0) L Red Cell Distribution Width 13.9 % (11.6-14.8) Platelet Count 345 K/UL (150-450) Mean Platelet Volume 6.4 FL (6.5-10.1) L Neutrophils (%) (Auto) 69.1 % (45.0-75.0) Lymphocytes (%) (Auto) 20.4 % (20.0-45.0) Monocytes (%) (Auto) 9.8 % (1.0-10.0) Eosinophils (%) (Auto) 0.1 % (0.0-3.0) Basophils (%) (Auto) 0.6 % (0.0-2.0) Activated Partial Thromboplast Time 43 SEC (23-33) H 91 SEC (23-33) H Sodium Level 135 mEQ/L (135-145) Potassium Level 4.9 mEQ/L (3.4-4.9) Chloride Level 100 mEQ/L (98-107) Carbon Dioxide Level 23 mEQ/L (20-30) Anion Gap 12 (5-15) Blood Urea Nitrogen 17 mg/dL (7-23) Creatinine 1.2 mg/dL (0.7-1.2) Estimat Glomerular Filtration Rate > 60 mL/min (>60) Glucose Level 96 mg/dL (74-106) Calcium Level 8.7 mg/dL (8.6-10.2) Iron Level 29 ug/dL (59-158) L Total Iron Binding Capacity 349 ug/dL (250-400) Percent Iron Saturation 8 % (15-50) L Unsaturated Iron Binding 320 ug/dL (112-346) Total Bilirubin 0.8 mg/dL (0.0-1.2) Aspartate Amino Transf (AST/SGOT) 35 U/L (5-40) Alanine Aminotransferase (ALT/SGPT) 58 U/L (3-41) H Alkaline Phosphatase 95 U/L (40-129) Total Protein 6.1 g/dL (6.6-8.7) L Albumin 2.8 g/dL (3.5-5.2) L Globulin 3.3 g/dL Albumin/Globulin Ratio 0.8 (1.0-2.7) L Vitamin B12 Level 505 pg/mL (211-946) Folate Pending Hepatitis A IgM Antibody Pending Hepatitis B Surface Antigen Pending Hepatitis B Core IgM Antibody Pending Hepatitis C Antibody Pending BAUDILIO GROSSMAN Sep 09, 2016 18:36
[2016-09-09 20:00] VITALS: BP 101/67
[2016-09-09] MEDS ORDERED: Warfarin Sodium 7.5mg ORAL ONE (20:30)
[2016-09-09] MEDS: Iron Sucrose 100 MG in NS 55 ML IVPB SCH (20:58)
--- NOTE | 2016-09-09 22:55 | Pulmonology Progress Note ---
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 (2) Abdominal pain (3) Hypotension (4) Intractable abdominal pain Assessment/Plan all notes reviewed echo reviewed ID consult requested optimize meds psych consult Subjective ROS Limited/Unobtainable: No Allergies: Coded Allergies: CODEINE (Unverified Allergy, Unknown, 09/08/16) SHELLFISH DERIVED (Unverified Allergy, Unknown, 09/08/16) Uncoded Allergies: CODEINE (Allergy, Unknown, 09/03/16) SHELLFISH (Allergy, Unknown, 09/07/16) Objective Last 24 Hour Vital Signs Date Time Temp Pulse Resp B/P Pulse Ox O2 Delivery O2 Flow Rate FiO2 09/09/16 20:58 114 104/72 09/09/16 20:00 120 09/09/16 20:00 97.9 118 19 101/67 96 Room Air 09/09/16 17:27 97.9 09/09/16 16:00 115 09/09/16 16:00 97.9 114 21 104/72 98 Room Air 09/09/16 11:54 123 09/09/16 11:31 98.2 113 18 101/73 97 Room Air 09/09/16 08:33 116 104/66 09/09/16 08:22 98.4 116 18 104/66 97 Room Air 09/09/16 07:44 113 09/09/16 04:00 98.8 117 20 101/65 96 Room Air 09/09/16 04:00 117 09/09/16 00:00 113 Intake and Output 09/08/16 09/09/16 19:00 07:00 Intake Total 675 ml 304.996 ml Output Total 800 ml Balance 675 ml -495.004 ml IV Total 675 ml 304.996 ml Output Urine Total 800 ml # Voids 1 General Appearance: WD/WN HEENT: normocephalic Respiratory/Chest: chest wall non-tender Cardiovascular: normal peripheral pulses Abdomen: normal bowel sounds Genitourinary: normal external genitalia Skin: no rash Laboratory Tests 09/09/16 00:00: Urine Opiates Screen PositiveH, Urine Barbiturates Screen Negative, Phencyclidine (PCP) Screen Negative, Urine Amphetamines Screen PositiveH, Urine Benzodiazepines Screen Negative, Urine Cocaine Screen Negative, Urine Marijuana (THC) Screen Negative 09/09/16 04:00: White Blood Count 10.4#, Red Blood Count 4.70, Hemoglobin 11.1L, Hematocrit 36.1L, Mean Corpuscular Volume 77L, Mean Corpuscular Hemoglobin 23.6L, Mean Corpuscular Hemoglobin Concent 30.7L, Red Cell Distribution Width 13.9, Platelet Count 345, Mean Platelet Volume 6.4L, Neutrophils (%) (Auto) 69.1, Lymphocytes (%) (Auto) 20.4, Monocytes (%) (Auto) 9.8, Eosinophils (%) (Auto) 0.1, Basophils (%) (Auto) 0.6, Activated Partial Thromboplast Time 43H, Sodium Level 135, Potassium Level 4.9, Chloride Level 100, Carbon Dioxide Level 23, Anion Gap 12, Blood Urea Nitrogen 17, Creatinine 1.2, Estimat Glomerular Filtration Rate > 60, Glucose Level 96, Calcium Level 8.7, Iron Level 29L, Total Iron Binding Capacity 349, Percent Iron Saturation 8L, Unsaturated Iron Binding 320, Total Bilirubin 0.8, Aspartate Amino Transf (AST/SGOT) 35, Alanine Aminotransferase (ALT/SGPT) 58H, Alkaline Phosphatase 95, Total Protein 6.1L, Albumin 2.8L, Globulin 3.3, Albumin/Globulin Ratio 0.8L, Vitamin B12 Level 505, Folate [Pending], Hepatitis A IgM Antibody [Pending], Hepatitis B Surface Antigen [Pending], Hepatitis B Core IgM Antibody [Pending], Hepatitis C Antibody [Pending] 09/09/16 11:30: Activated Partial Thromboplast Time 91H Current Medications Medications (Trade) Dose Ordered Sig/Katie Route PRN Reason Start Time Stop Time Status Last Admin Dose Admin Acetaminophen (Tylenol) 650 mg Q4H PRN ORAL fever 09/07/16 21:15 10/07/16 21:14 Al Hydroxide/Mg Hydroxide (Mylanta II) 30 ml Q6H PRN ORAL dyspepsia 09/07/16 21:15 10/07/16 21:14 Carvedilol 3.125 mg 3.125 mg EVERY 12 HOURS ORAL 09/08/16 19:00 10/08/16 18:59 09/09/16 20:58 Dextrose (Dextrose 50%) STAT PRN IV Hypoglycemia 09/07/16 21:15 10/07/16 21:14 Diphenhydramine HCl (Benadryl) 25 mg Q6H PRN ORAL Itching/Pruritis 09/07/16 21:15 10/07/16 21:14 09/08/16 02:23 Furosemide (Lasix) 20 mg BID ORAL 09/09/16 20:00 10/09/16 19:59 09/09/16 20:58 Heparin Sodium/ Dextrose 500 ml @ 36.324 mls/ hr adjust per protocol IV 09/09/16 05:26 10/08/16 20:59 09/09/16 14:34 Iron Sucrose/ Sodium Chloride (Venofer/Sodium Chloride) 60 ml @ 240 mls/hr BEDTIME IVPB 09/09/16 21:00 09/13/16 21:14 09/09/16 20:58 Morphine Sulfate (Morphine Sulfate) 2 mg EVERY 4 HOURS PRN IVP severe Pain (Pain Scale 7-10) 09/07/16 21:15 09/14/16 21:14 09/09/16 20:59 Nitroglycerin (Ntg) 0.4 mg Q5M X 3 DOSES PRN SL Prn Chest Pain 09/07/16 21:15 10/07/16 21:14 Ondansetron HCl (Zofran) 4 mg Q6H PRN IVP Nausea & Vomiting 09/07/16 21:15 10/07/16 21:14 Polyethylene Glycol (Miralax) 17 gm HSPRN PRN ORAL Constipation 09/07/16 21:15 10/07/16 21:14 Temazepam (Restoril) 15 mg HSPRN PRN ORAL Insomnia 09/07/16 21:15 09/14/16 21:14 Warfarin Sodium (Coumadin per pharmacy) 1 ea DAILY PRN MISC Per rx protocol 09/09/16 18:30 10/09/16 18:29 RENEE LEYVA Sep 09, 2016 22:55
[2016-09-10] VITALS: BP 100/68
[2016-09-10] MEDS: Morphine Sulfate 2mg/ml Inj IVP PRN ×6 (01:30→21:47)
[2016-09-10 04:25] VITALS: BP 107/68
[2016-09-10 04:41] LABS: INR 1.3 (0.9-1.1)
[2016-09-10] MEDS ORDERED: Heparin 25,000u/D5W 500ml 500 ML IV SCH (05:24)
[2016-09-10] MEDS ORDERED: Heparin 5000 units/ml inj IV ONE (05:30)
[2016-09-10 08:47] VITALS: BP 101/71
--- NOTE | 2016-09-10 09:37 | Consultation ---
Consult Note Consult Note ID CONSULT: Uday# [id number] Assessment/Plan ASSESSMENT: 31 y/o male with: // HIV(+), not on cART - CD4 >600 per self-report // Afebrile without leukocytosis // TOWEL SEWER with possible LV thrombus, on anticoagulation - TTE: EF 15-20%, grade III diastolic dysfunction, mod MR, TR, mod-sev pulmonary HTN // Abdominal pain - persistent, GI following, hepatitis panel pending - CT A/P: no nephrolithiasis or hydronephrosis demonstrated. There is thickening of the gallbladder wall. Suspect small stones within the gallbladder. - US: pancreas, gallbladder, spleen appear unremarkable. The liver is enlarged. Subtle echogenic focus in the midpole the right kidney. No biliary ductal dilatation - elevated LFTs, lipase WNL // UDS(+) opiates, amphetamines // No ABX allergies // Full Code PLAN: - no indication for antimicrobials at this time. Monitor pt off of ABX - outpt f/u to consider HIV Rx - f/u hepatitis panel - anticoagulation per cardiology - monitor CBC, temperatures - monitor CMP - GI following Thanks! Will follow RUBIN LING Sep 10, 2016 09:37
--- NOTE | 2016-09-10 10:18 | General Progress Note ---
Assessment/Plan Problem List: (1) Iron deficiency anemia ICD Codes: D50.9 - Iron deficiency anemia, unspecified SNOMED: 13285912 (2) Abdominal pain ICD Codes: R10.9 - Unspecified abdominal pain SNOMED: 68266398 (3) Psychosis ICD Codes: F29 - Unspecified psychosis not due to a substance or known physiological condition SNOMED: 08724206 Assessment/Plan iv iron fu H&H fu stool OB pain control fu hepatitis panel Subjective ROS Limited/Unobtainable: Yes Allergies: Coded Allergies: CODEINE (Unverified Allergy, Unknown, 09/08/16) SHELLFISH DERIVED (Unverified Allergy, Unknown, 09/08/16) Uncoded Allergies: CODEINE (Allergy, Unknown, 09/03/16) SHELLFISH (Allergy, Unknown, 09/07/16) Subjective no event Objective Last 24 Hour Vital Signs Date Time Temp Pulse Resp B/P Pulse Ox O2 Delivery O2 Flow Rate FiO2 09/10/16 08:58 118 101/71 09/10/16 08:47 98.1 118 18 101/71 95 Room Air 09/10/16 04:25 98.1 105 20 107/68 100 Room Air 09/10/16 04:00 109 09/10/16 00:00 98.6 119 20 100/68 99 Room Air 09/10/16 00:00 118 09/09/16 21:29 97.9 09/09/16 20:58 114 104/72 09/09/16 20:00 120 09/09/16 20:00 97.9 118 19 101/67 96 Room Air 09/09/16 16:00 115 09/09/16 16:00 97.9 114 21 104/72 98 Room Air 09/09/16 11:54 123 09/09/16 11:31 98.2 113 18 101/73 97 Room Air Intake and Output 09/09/16 09/10/16 19:00 07:00 Intake Total 217.860 ml 545.088 ml Output Total 250 ml 1100 ml Balance -32.140 ml -554.912 ml Intake Oral 260 ml IV Total 217.860 ml 285.088 ml Output Urine Total 250 ml 1100 ml # Voids 2 Laboratory Tests 09/09/16 11:30: Activated Partial Thromboplast Time 91H 09/10/16 04:00: Activated Partial Thromboplast Time 42H, Prothrombin Time 13.0H, Prothromb Time International Ratio 1.3H Height (Feet): 6 Height (Inches): 1.00 Weight (Pounds): 182 General Appearance: alert EENT: normal ENT inspection Neck: supple Cardiovascular: normal rate Respiratory/Chest: lungs clear Abdomen: normal bowel sounds, non tender, soft Extremities: non-tender BECCA LAKE Sep 10, 2016 10:18
[2016-09-10 11:35] VITALS: BP 108/63
[2016-09-10 16:00] VITALS: BP 104/73
[2016-09-10] MEDS ORDERED: Warfarin Sodium 5mg ORAL ONE (17:00)
--- NOTE | 2016-09-10 17:58 | Consultation ---
DATE OF CONSULTATION: 09/10/2016 INFECTIOUS DISEASE CONSULTATION CONSULTING PHYSICIAN: Ochoa Cesar M.D. REFERRING PHYSICIAN: Elisa Liu M.D. REASON FOR CONSULTATION: HIV. HISTORY OF PRESENT ILLNESS: The patient is a 31-year-old transgender male with a history of HIV, not on antiretroviral therapy with a CD4 count of more than 600, admitted on with chest pain, dizziness, and abdominal pain. Troponins were negative x2. Echocardiogram shows an ejection fraction of 15% to 20% with possible apical thrombus, for which he has been started on anticoagulation. Regarding his abdominal pain, it is persistent now on the left upper quadrant. CT abdomen and pelvis shows no nephrolithiasis or hydronephrosis. Thickening of the gallbladder wall with small stones suspected. He has no fevers, and white blood cell count is normal. LFTs are improved. No cultures have been sent, and he is not currently receiving any antibiotics or any antimicrobial therapy. ID now consulted to assist in management. PAST MEDICAL HISTORY: 1. HIV, not on antiretroviral therapy with a CD4 count of more than 600 per self report. 2. Cardiomyopathy. 3. Asthma. 4. Anxiety and depression. PAST SURGICAL HISTORY: None. FAMILY HISTORY: Noncontributory. SOCIAL HISTORY: The patient is a transgender male, tobacco and marijuana smoker, and occasional alcohol use. ALLERGIES: 1. Codeine. 2. Shell fish. MEDICATIONS: 1. Coumadin. 2. Heparin drip. 3. No antibiotics. 4. Coreg. 5. Lasix. REVIEW OF SYSTEMS: As per history of present illness. Ten systems reviewed. All pertinent positives and negatives noted. PHYSICAL EXAMINATION: VITAL SIGNS: Maximum temperature 99 degrees, blood pressure 101/71, heart rate 118, respiratory rate 18, and saturating 95% on room air. GENERAL: No apparent distress. Nontoxic appearing. CARDIOVASCULAR: Tachycardic, no murmurs. PULMONARY: Clear to auscultation bilaterally. ABDOMINAL: Bowel sounds present. Soft, nondistended, and tender to palpation. EXTREMITIES: No edema. SKIN: No rash. NEUROLOGICAL: Alert and oriented x3, nonfocal. LABORATORY DATA: White blood cell count 10.1, hemoglobin 11.1, and platelets 345,000. Sodium 135, potassium 4.9, chloride 100, bicarbonate 23, BUN 17, and creatinine 1.2. INR of 1.3. AST 35, ALT 56, alkaline phosphatase 95, and total bilirubin 0.8. Albumin 2.8. Troponin negative x2. Urine drug screen positive for opiates and amphetamines. Urinalysis negative. Hepatitis panel pending. MICROBIOLOGY: None. IMAGIN. 09/08/2016, echocardiogram, ejection fraction 15% to 20% with grade 3 diastolic dysfunction, moderate mitral and tricuspid regurgitation, and moderate to severe pulmonary hypertension. 2. Abdominal ultrasound. Pancreas, gallbladder, and spleen all appear unremarkable. Liver is enlarged. Biliary ductal dilatation. 3. CT abdomen and pelvis. No nephrolithiasis or hydronephrosis. Thickening of the gallbladder wall is suspected and cholelithiasis. ASSESSMENT: 1. Human immunodeficiency virus positive, not on combination antiretroviral therapy with CD4 count more than 600 per self report. 2. Afebrile without leukocytosis. 3. Cardiomyopathy with possible left ventricular thrombus, on anticoagulation. 4. Abdominal pain, persistent. Gastroenterology is following and hepatitis panel is pending. Ultrasound and CT as above. LFTs are improved and lipase is within normal limits. 5. Urine drug screen positive for opiates and amphetamines. 6. No antibiotic allergies. 7. Full Code. PLAN: 1. No indication for antimicrobial therapy at this time. 2. Monitor the patient off of antibiotics. 3. Outpatient followup to consider human immunodeficiency virus treatment. 4. Follow up hepatitis panel. 5. No coagulation per Cardiology. 6. Monitor CBC and temperatures. 7. Monitor CMP. Thank you. We will follow. Ochoa Cesar M.D. DR: VALENTIN JOB#: [id number] CC: Elisa Liu M.D.; Fax#: [phone] Alborzi, M.D ; Fax#: [phone]
[2016-09-10 19:00] VITALS: BP 108/75
[2016-09-10] MEDS: Iron Sucrose 100 MG in NS 55 ML IVPB SCH (21:46)
--- NOTE | 2016-09-10 22:45 | Pulmonology Progress Note ---
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 (2) Abdominal pain (3) Hypotension (4) Intractable abdominal pain Assessment/Plan all notes reviewed echo reviewed ID consult appreciated optimize meds psych consult GI evaluation Subjective ROS Limited/Unobtainable: No Interval Events: c/o vague abodminal pain Allergies: Coded Allergies: CODEINE (Unverified Allergy, Unknown, 09/08/16) SHELLFISH DERIVED (Unverified Allergy, Unknown, 09/08/16) Uncoded Allergies: CODEINE (Allergy, Unknown, 09/03/16) SHELLFISH (Allergy, Unknown, 09/07/16) Objective Last 24 Hour Vital Signs Date Time Temp Pulse Resp B/P Pulse Ox O2 Delivery O2 Flow Rate FiO2 09/10/16 22:27 98.0 09/10/16 21:47 122 108/75 09/10/16 19:57 121 09/10/16 19:00 98.0 63 20 108/75 Room Air 09/10/16 16:10 116 09/10/16 16:00 98.1 60 20 104/73 Room Air 09/10/16 12:00 107 09/10/16 11:35 97.9 115 18 108/63 95 Room Air 09/10/16 08:58 118 101/71 09/10/16 08:47 98.1 118 18 101/71 95 Room Air 09/10/16 08:00 117 09/10/16 04:25 98.1 105 20 107/68 100 Room Air 09/10/16 04:00 109 09/10/16 00:00 98.6 119 20 100/68 99 Room Air 09/10/16 00:00 118 Intake and Output 09/09/16 09/10/16 19:00 07:00 Intake Total 217.860 ml 545.088 ml Output Total 250 ml 1100 ml Balance -32.140 ml -554.912 ml Intake Oral 260 ml IV Total 217.860 ml 285.088 ml Output Urine Total 250 ml 1100 ml # Voids 2 General Appearance: WD/WN HEENT: normocephalic, anicteric Respiratory/Chest: chest wall non-tender, lungs clear Cardiovascular: normal peripheral pulses, normal rate Abdomen: normal bowel sounds, soft, non tender Neurologic/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: 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 grossly normal Laboratory Tests 09/10/16 04:00: Prothrombin Time 13.0H, Prothromb Time International Ratio 1.3H, Activated Partial Thromboplast Time 42H 09/10/16 16:15: Stool Occult Blood [Pending] Current Medications Medications (Trade) Dose Ordered Sig/Katie Route PRN Reason Start Time Stop Time Status Last Admin Dose Admin Acetaminophen (Tylenol) 650 mg Q4H PRN ORAL fever 09/07/16 21:15 10/07/16 21:14 Al Hydroxide/Mg Hydroxide (Mylanta II) 30 ml Q6H PRN ORAL dyspepsia 09/07/16 21:15 10/07/16 21:14 Carvedilol 3.125 mg 3.125 mg EVERY 12 HOURS ORAL 09/08/16 19:00 10/08/16 18:59 09/10/16 21:47 Dextrose (Dextrose 50%) STAT PRN IV Hypoglycemia 09/07/16 21:15 10/07/16 21:14 Diphenhydramine HCl (Benadryl) 25 mg Q6H PRN ORAL Itching/Pruritis 09/07/16 21:15 10/07/16 21:14 09/10/16 01:44 Furosemide (Lasix) 20 mg BID ORAL 09/09/16 20:00 10/09/16 19:59 09/10/16 17:33 Heparin Sodium/ Dextrose (Heparin) 500 ml @ 42.928 mls/ hr adjust per protocol IV 09/10/16 05:24 10/08/16 20:59 09/10/16 05:41 Iron Sucrose/ Sodium Chloride (Venofer/Sodium Chloride) 60 ml @ 240 mls/hr BEDTIME IVPB 09/09/16 21:00 09/13/16 21:14 09/10/16 21:46 Morphine Sulfate (Morphine Sulfate) 2 mg EVERY 4 HOURS PRN IVP severe Pain (Pain Scale 7-10) 09/07/16 21:15 09/14/16 21:14 09/10/16 21:47 Nitroglycerin (Ntg) 0.4 mg Q5M X 3 DOSES PRN SL Prn Chest Pain 09/07/16 21:15 10/07/16 21:14 Ondansetron HCl (Zofran) 4 mg Q6H PRN IVP Nausea & Vomiting 3/21/17 21:15 10/07/16 21:14 09/10/16 19:34 Polyethylene Glycol (Miralax) 17 gm HSPRN PRN ORAL Constipation 09/07/16 21:15 10/07/16 21:14 Temazepam (Restoril) 15 mg HSPRN PRN ORAL Insomnia 09/07/16 21:15 09/14/16 21:14 Warfarin Sodium 1 ea 1 ea DAILY PRN MISC Per rx protocol 09/09/16 18:30 10/09/16 18:29 RENEE LEYVA Sep 10, 2016 22:45
[2016-09-10 23:58] LABS: INR 1.3 (0.9-1.1); PROTHROMBIN TIME 12.9 SEC (9.30-11.50)
[2016-09-11] MEDS ORDERED: Heparin 25,000u/D5W 500ml 500 ML IV SCH (01:03)
[2016-09-11] MEDS ORDERED: Heparin 5000 units/ml inj IV ONE (01:15)
[2016-09-11] MEDS: Morphine Sulfate 2mg/ml Inj IVP PRN ×6 (01:54→23:47)
[2016-09-11 08:00] VITALS: BP 119/74
[2016-09-11 08:16] LABS: INR 1.3 (0.9-1.1); PROTHROMBIN TIME 13.8 SEC (9.30-11.50)
--- NOTE | 2016-09-11 09:03 | Infectious Diseases Prog Note ---
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 There is thickening of the gallbladder wall. Suspect small stones within the gallbladder. - US: pancreas, gallbladder, spleen appear unremarkable. The liver is enlarged. Subtle echogenic focus in the midpole the right kidney. No biliary ductal dilatation - elevated LFTs improved, lipase WNL // UDS(+) opiates, amphetamines // No ABX allergies // Full Code PLAN: - no indication for antimicrobials at this time. Monitor pt off of ABX - outpt f/u to consider HIV Rx - anticoagulation per cardiology - monitor CBC, temperatures - monitor CMP - GI following Subjective Allergies: Coded Allergies: CODEINE (Unverified Allergy, Unknown, 09/08/16) SHELLFISH DERIVED (Unverified Allergy, Unknown, 09/08/16) Uncoded Allergies: CODEINE (Allergy, Unknown, 09/03/16) SHELLFISH (Allergy, Unknown, 09/07/16) Subjective remains afebrile. c/o abdominal pain Objective Vital Signs Last 24 Hour Vital Signs Date Time Temp Pulse Resp B/P Pulse Ox O2 Delivery O2 Flow Rate FiO2 09/11/16 04:00 112 09/11/16 00:00 101 09/10/16 22:27 98.0 09/10/16 21:47 122 108/75 09/10/16 19:57 121 09/10/16 19:00 98.0 63 20 108/75 Room Air 09/10/16 16:10 116 09/10/16 16:00 98.1 60 20 104/73 Room Air 09/10/16 12:00 107 09/10/16 11:35 97.9 115 18 108/63 95 Room Air Height (Feet): 6 Height (Inches): 1.00 Weight (Pounds): 182 General Appearance: no acute distress Respiratory/Chest: no respiratory distress Cardiovascular: normal rate, regular rhythm Abdomen: normal bowel sounds, non distended Laboratory Tests Test 09/10/16 16:15 09/10/16 23:30 09/11/16 07:30 Stool Occult Blood Pending Prothrombin Time 12.9 SEC (9.30-11.50) H 13.8 SEC (9.30-11.50) H Prothromb Time International Ratio 1.3 (0.9-1.1) H 1.3 (0.9-1.1) H Activated Partial Thromboplast Time 49 SEC (23-33) H 115 SEC (23-33) H Current Medications Medications (Trade) Dose Ordered Sig/Katie Route PRN Reason Start Time Stop Time Status Last Admin Dose Admin Acetaminophen (Tylenol) 650 mg Q4H PRN ORAL fever 09/07/16 21:15 10/07/16 21:14 Al Hydroxide/Mg Hydroxide (Mylanta II) 30 ml Q6H PRN ORAL dyspepsia 09/07/16 21:15 10/07/16 21:14 Carvedilol 3.125 mg 3.125 mg EVERY 12 HOURS ORAL 09/08/16 19:00 10/08/16 18:59 09/10/16 21:47 Dextrose (Dextrose 50%) STAT PRN IV Hypoglycemia 09/07/16 21:15 10/07/16 21:14 Diphenhydramine HCl (Benadryl) 25 mg Q6H PRN ORAL Itching/Pruritis 09/07/16 21:15 10/07/16 21:14 09/10/16 01:44 Furosemide (Lasix) 20 mg BID ORAL 09/09/16 20:00 10/09/16 19:59 09/10/16 17:33 Heparin Sodium/ Dextrose (Heparin) 500 ml @ 44.579 mls/ hr adjust per protocol IV 09/11/16 08:39 10/08/16 20:59 Iron Sucrose/ Sodium Chloride (Venofer/Sodium Chloride) 60 ml @ 240 mls/hr BEDTIME IVPB 09/09/16 21:00 09/13/16 21:14 09/10/16 21:46 Morphine Sulfate (Morphine Sulfate) 2 mg EVERY 4 HOURS PRN IVP severe Pain (Pain Scale 7-10) 09/07/16 21:15 09/14/16 21:14 09/11/16 06:42 Nitroglycerin (Ntg) 0.4 mg Q5M X 3 DOSES PRN SL Prn Chest Pain 09/07/16 21:15 10/07/16 21:14 Ondansetron HCl (Zofran) 4 mg Q6H PRN IVP Nausea & Vomiting 09/07/16 21:15 10/07/16 21:14 09/10/16 19:34 Polyethylene Glycol (Miralax) 17 gm HSPRN PRN ORAL Constipation 09/07/16 21:15 10/07/16 21:14 Temazepam (Restoril) 15 mg HSPRN PRN ORAL Insomnia 09/07/16 21:15 09/14/16 21:14 Warfarin Sodium (Coumadin per pharmacy) 1 ea DAILY PRN MISC Per rx protocol 09/09/16 18:30 10/09/16 18:29 Warfarin Sodium 6 mg 6 mg COUMADIN ORAL 09/11/16 17:00 09/11/16 17:01 RUBIN LING Sep 11, 2016 09:03
[2016-09-11] MEDS: Heparin 25,000u/D5W 500ml 500 ML IV SCH ×2 (09:16→15:10)
[2016-09-11 12:00] VITALS: BP 120/74
[2016-09-11] MEDS ORDERED: Tubing IV Secondary IV ONE (13:42)
--- NOTE | 2016-09-11 14:28 | Cardiology Progress Note ---
Assessment/Plan Status: stable, unchanged Status Narrative Mr. Rashid has cardiomyopathy, w/ EF < 20% by echo this adm - ? nonischemic Possible LV apical thrombus on echo this adm Assessment/Plan Would continue coreg. Attempt to add CHRIS inh or ARB for afterload reduction if tollerated by BP. Abd pain - ? hepatic congestion w/ chf abd ct negative Subjective ROS Limited/Unobtainable: No Subjective pt c/o abd and chest pain. Objective Last 24 Hour Vital Signs Date Time Temp Pulse Resp B/P Pulse Ox O2 Delivery O2 Flow Rate FiO2 09/11/16 12:00 107 09/11/16 12:00 97.0 84 16 120/74 96 Room Air 09/11/16 09:14 103 104/68 09/11/16 08:00 97.7 74 18 119/74 92 Room Air 09/11/16 08:00 107 09/11/16 04:00 112 09/11/16 00:00 101 09/10/16 22:27 98.0 09/10/16 21:47 122 108/75 09/10/16 19:57 121 09/10/16 19:00 98.0 63 20 108/75 Room Air 09/10/16 16:10 116 09/10/16 16:00 98.1 60 20 104/73 Room Air General Appearance: WD/WN, no apparent distress, alert EENT: PERRL/EOMI Neck: supple Rhythm: NSR Cardiovascular: normal rate, regular rhythm, no gallop/murmur Respiratory/Chest: lungs clear Abdomen: non tender, soft Extremities: no swelling Intake and Output 09/10/16 09/11/16 19:00 07:00 Intake Total 934.640 ml 847.660 ml Output Total 1300 ml 450 ml Balance -365.360 ml 397.660 ml Intake Oral 720 ml 540 ml IV Total 214.640 ml 307.660 ml Output Urine Total 1300 ml 200 ml Emesis 250 ml # Voids 1 5 # Bowel Movements 1 1 Laboratory Tests Test 09/10/16 16:15 09/10/16 23:30 09/11/16 07:30 Stool Occult Blood Negative (NEGATIVE) Prothrombin Time 12.9 SEC (9.30-11.50) H 13.8 SEC (9.30-11.50) H Prothromb Time International Ratio 1.3 (0.9-1.1) H 1.3 (0.9-1.1) H Activated Partial Thromboplast Time 49 SEC (23-33) H 115 SEC (23-33) H NEHEMIAS PIERRE Sep 11, 2016 14:28
[2016-09-11 16:00] VITALS: BP 105/60
[2016-09-11] MEDS ORDERED: Warfarin Sodium 3mg ORAL SCH (17:00)
[2016-09-11 20:00] VITALS: BP 102/76
[2016-09-11] MEDS: Iron Sucrose 100 MG in NS 55 ML IVPB SCH (21:00)
[2016-09-12] VITALS: BP 98/66
[2016-09-12 04:00] VITALS: BP 94/69
[2016-09-12] MEDS: Morphine Sulfate 2mg/ml Inj IVP PRN ×4 (04:05→17:45)
[2016-09-12] MEDS: Heparin 25,000u/D5W 500ml 500 ML IV SCH ×2 (05:36→23:36)
[2016-09-12 08:00] VITALS: BP 118/64
[2016-09-12 08:29] LABS: INR 1.3 (0.9-1.1); PROTHROMBIN TIME 13.4 SEC (9.30-11.50)
--- NOTE | 2016-09-12 09:08 | Infectious Diseases Prog Note ---
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 There is thickening of the gallbladder wall. Suspect small stones within the gallbladder. - US: pancreas, gallbladder, spleen appear unremarkable. The liver is enlarged. Subtle echogenic focus in the midpole the right kidney. No biliary ductal dilatation - elevated LFTs improved, lipase WNL // UDS(+) opiates, amphetamines // No ABX allergies // Full Code PLAN: - no indication for antimicrobials at this time. Monitor pt off of ABX - outpt f/u to consider HIV Rx - anticoagulation per cardiology - monitor CBC, temperatures - monitor CMP - GI following Subjective Allergies: Coded Allergies: CODEINE (Unverified Allergy, Unknown, 09/08/16) SHELLFISH DERIVED (Unverified Allergy, Unknown, 09/08/16) Uncoded Allergies: CODEINE (Allergy, Unknown, 09/03/16) SHELLFISH (Allergy, Unknown, 09/07/16) Subjective remains afebrile. c/o abdominal pain Objective Vital Signs Last 24 Hour Vital Signs Date Time Temp Pulse Resp B/P Pulse Ox O2 Delivery O2 Flow Rate FiO2 09/12/16 09:00 116 118/64 09/12/16 08:00 117 09/12/16 08:00 96.6 116 18 118/64 98 Room Air 09/12/16 04:00 107 09/12/16 04:00 97.7 104 20 94/69 100 Venturi Mask 09/12/16 00:00 108 09/12/16 00:00 98.2 105 20 98/66 100 Room Air 09/11/16 20:00 97.9 113 22 102/76 95 Room Air 09/11/16 20:00 114 09/11/16 19:30 98.1 09/11/16 16:31 98 09/11/16 16:00 98.1 98 20 105/60 98 Room Air 09/11/16 12:00 107 3/25/17 12:00 97.0 84 16 120/74 96 Room Air 09/11/16 09:14 103 104/68 Height (Feet): 6 Height (Inches): 1.00 Weight (Pounds): 182 General Appearance: no acute distress Respiratory/Chest: no respiratory distress Cardiovascular: normal rate, regular rhythm Abdomen: normal bowel sounds, non distended Laboratory Tests Test 09/11/16 15:40 09/12/16 04:15 Activated Partial Thromboplast Time 73 SEC (23-33) H 84 SEC (23-33) H Prothrombin Time 13.4 SEC (9.30-11.50) H Prothromb Time International Ratio 1.3 (0.9-1.1) H Current Medications Medications (Trade) Dose Ordered Sig/Katie Route PRN Reason Start Time Stop Time Status Last Admin Dose Admin Acetaminophen (Tylenol) 650 mg Q4H PRN ORAL fever 09/07/16 21:15 10/07/16 21:14 Al Hydroxide/Mg Hydroxide (Mylanta II) 30 ml Q6H PRN ORAL dyspepsia 09/07/16 21:15 10/07/16 21:14 Carvedilol 3.125 mg 3.125 mg EVERY 12 HOURS ORAL 09/08/16 19:00 10/08/16 18:59 09/12/16 09:00 Dextrose (Dextrose 50%) STAT PRN IV Hypoglycemia 09/07/16 21:15 10/07/16 21:14 Diphenhydramine HCl (Benadryl) 25 mg Q6H PRN ORAL Itching/Pruritis 09/07/16 21:15 10/07/16 21:14 09/10/16 01:44 Furosemide (Lasix) 20 mg BID ORAL 09/09/16 20:00 10/09/16 19:59 09/12/16 08:34 Heparin Sodium/ Dextrose (Heparin) 500 ml @ 44.579 mls/ hr adjust per protocol IV 09/11/16 08:39 10/08/16 20:59 09/12/16 05:36 Iron Sucrose/ Sodium Chloride (Venofer/Sodium Chloride) 60 ml @ 240 mls/hr BEDTIME IVPB 09/09/16 21:00 09/13/16 21:14 09/10/16 21:46 Morphine Sulfate (Morphine Sulfate) 2 mg EVERY 4 HOURS PRN IVP severe Pain (Pain Scale 7-10) 09/07/16 21:15 09/14/16 21:14 09/12/16 08:34 Nitroglycerin (Ntg) 0.4 mg Q5M X 3 DOSES PRN SL Prn Chest Pain 09/07/16 21:15 10/07/16 21:14 Ondansetron HCl (Zofran) 4 mg Q6H PRN IVP Nausea & Vomiting 09/07/16 21:15 10/07/16 21:14 09/11/16 18:56 Polyethylene Glycol (Miralax) 17 gm HSPRN PRN ORAL Constipation 09/07/16 21:15 10/07/16 21:14 Temazepam (Restoril) 15 mg HSPRN PRN ORAL Insomnia 09/07/16 21:15 09/14/16 21:14 Warfarin Sodium (Coumadin) 6 mg COUMADIN ORAL 09/12/16 17:00 09/12/16 17:01 Warfarin Sodium 1 ea 1 ea DAILY PRN MISC Per rx protocol 09/09/16 18:30 10/09/16 18:29 RUBIN LING 26, 2017 09:08
[2016-09-12] MEDS ORDERED: Tubing IV Secondary IV ONE (11:17)
[2016-09-12] MEDS ORDERED: NS 275ml ONE (11:17)
[2016-09-12 12:00] VITALS: BP 109/72
--- NOTE | 2016-09-12 14:30 | Cardiology Progress Note ---
Assessment/Plan Status: stable, progressing Status Narrative Mr. Rashid has cardiomyopathy, w/ EF < 20% by echo this adm - likely nonischemic, possibly due to drug (amphetamine) use Possible LV apical thrombus on echo this adm Assessment/Plan Would continue coreg - titrate dose. Continue diuretics and attempt to add afterload redn (roxie or ARB ) if bp tolerates Continue warfarin for LV thrombus and followup inr Evaluation of nausea per primary team Subjective ROS Limited/Unobtainable: No Subjective pt c/o nausea. no vomiting. no dyspnea at rest Objective Last 24 Hour Vital Signs Date Time Temp Pulse Resp B/P Pulse Ox O2 Delivery O2 Flow Rate FiO2 09/12/16 12:00 97.0 112 17 109/72 95 Room Air 09/12/16 12:00 102 09/12/16 09:00 116 118/64 09/12/16 08:00 117 09/12/16 08:00 96.6 116 18 118/64 98 Room Air 09/12/16 04:00 107 09/12/16 04:00 97.7 104 20 94/69 100 Venturi Mask 09/12/16 00:00 108 09/12/16 00:00 98.2 105 20 98/66 100 Room Air 09/11/16 20:00 97.9 113 22 102/76 95 Room Air 09/11/16 20:00 114 09/11/16 19:30 98.1 09/11/16 16:31 98 09/11/16 16:00 98.1 98 20 105/60 98 Room Air General Appearance: WD/WN, alert EENT: PERRL/EOMI Neck: supple, no JVD Rhythm: NSR Cardiovascular: normal rate, regular rhythm, systolic murmur Respiratory/Chest: lungs clear - clear anteriorly Abdomen: non tender, soft Extremities: no swelling Intake and Output 09/11/16 09/12/16 19:00 07:00 Intake Total 1215.696 ml 825.790 ml Output Total 640 ml 400 ml Balance 575.696 ml 425.790 ml Intake Oral 760 ml 380 ml IV Total 455.696 ml 445.790 ml Output Urine Total 640 ml 400 ml # Voids 3 Laboratory Tests Test 09/11/16 15:40 09/12/16 04:15 Activated Partial Thromboplast Time 73 SEC (23-33) H 84 SEC (23-33) H Prothrombin Time 13.4 SEC (9.30-11.50) H Prothromb Time International Ratio 1.3 (0.9-1.1) H NEHEMIAS PIERRE Sep 12, 2016 14:30
[2016-09-12 16:00] VITALS: BP 92/70
[2016-09-12] MEDS ORDERED: Miralax 17gm pkt ORAL PRN (16:00)
[2016-09-12] MEDS: Warfarin Sodium 3mg ORAL SCH ×2 (17:00→17:45)
--- NOTE | 2016-09-12 18:27 | Cardiology Report ---
APPROVED REPORT EKG Measurement Heart [id number] Sinus tachycardia Left axis deviation T wave abnormality, consider inferolateral ischemia Abnormal ECG
[2016-09-12 20:00] VITALS: BP 106/68
[2016-09-12] MEDS: Iron Sucrose 100 MG in NS 55 ML IVPB SCH (21:38)
--- NOTE | 2016-09-12 22:32 | Pulmonology Progress Note ---
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 (2) Abdominal pain (3) Hypotension (4) Intractable abdominal pain Assessment/Plan all notes reviewed echo reviewed ID consult appreciated optimize meds psych consult GI evaluation Subjective ROS Limited/Unobtainable: No Respiratory: Reports: dry cough, shortness of breath Cardiovascular: Reports: chest pain, palpitations Allergies: Coded Allergies: CODEINE (Unverified Allergy, Unknown, 09/08/16) SHELLFISH DERIVED (Unverified Allergy, Unknown, 09/08/16) Objective Last 24 Hour Vital Signs Date Time Temp Pulse Resp B/P Pulse Ox O2 Delivery O2 Flow Rate FiO2 09/12/16 21:37 109 106/68 09/12/16 20:00 97.5 109 21 106/68 100 Room Air 09/12/16 16:00 98.1 97 21 92/70 98 Room Air 09/12/16 12:00 97.0 112 17 109/72 95 Room Air 09/12/16 12:00 102 09/12/16 09:00 116 118/64 09/12/16 08:00 117 09/12/16 08:00 96.6 116 18 118/64 98 Room Air 09/12/16 04:00 107 09/12/16 04:00 97.7 104 20 94/69 100 Venturi Mask 09/12/16 00:00 108 09/12/16 00:00 98.2 105 20 98/66 100 Room Air Intake and Output 09/11/16 09/12/16 19:00 07:00 Intake Total 1215.696 ml 825.790 ml Output Total 640 ml 400 ml Balance 575.696 ml 425.790 ml Intake Oral 760 ml 380 ml IV Total 455.696 ml 445.790 ml Output Urine Total 640 ml 400 ml # Voids 3 General Appearance: no acute distress HEENT: normocephalic, atraumatic, PERRL Respiratory/Chest: chest wall non-tender, decreased breath sounds, accessory muscle use Cardiovascular: normal rate, tachycardia, murmur systolic, friction rub Abdomen: normal bowel sounds, soft, non tender, no organomegaly Genitourinary: normal external genitalia Extremities: no cyanosis Skin: no rash, no lesions 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, no motor/sensory deficits Laboratory Tests 09/12/16 04:15: Prothrombin Time 13.4H, Prothromb Time International Ratio 1.3H, Activated Partial Thromboplast Time 84H Current Medications Medications (Trade) Dose Ordered Sig/Ktaie Route PRN Reason Start Time Stop Time Status Last Admin Dose Admin Acetaminophen (Tylenol) 650 mg Q4H PRN ORAL fever 09/07/16 21:15 10/07/16 21:14 09/12/16 22:27 Al Hydroxide/Mg Hydroxide (Mylanta II) 30 ml Q6H PRN ORAL dyspepsia 09/07/16 21:15 10/07/16 21:14 Carvedilol (Coreg) 6.25 mg EVERY 12 HOURS ORAL 09/12/16 21:00 10/12/16 20:59 09/12/16 21:37 Dextrose STAT PRN IV Hypoglycemia 09/07/16 21:15 10/07/16 21:14 Diphenhydramine HCl (Benadryl) 25 mg Q6H PRN ORAL Itching/Pruritis 09/07/16 21:15 10/07/16 21:14 09/10/16 01:44 Furosemide (Lasix) 20 mg BID ORAL 09/09/16 20:00 10/09/16 19:59 09/12/16 08:34 Heparin Sodium/ Dextrose (Heparin) 500 ml @ 44.579 mls/ hr adjust per protocol IV 09/11/16 08:39 10/08/16 20:59 09/12/16 05:36 Iron Sucrose/ Sodium Chloride (Venofer/Sodium Chloride) 60 ml @ 240 mls/hr BEDTIME IVPB 09/09/16 21:00 09/13/16 21:14 09/12/16 21:38 Morphine Sulfate (Morphine Sulfate) 2 mg EVERY 4 HOURS PRN IVP severe Pain (Pain Scale 7-10) 09/07/16 21:15 09/14/16 21:14 09/12/16 17:45 Nitroglycerin (Ntg) 0.4 mg Q5M X 3 DOSES PRN SL Prn Chest Pain 09/07/16 21:15 10/07/16 21:14 Ondansetron HCl (Zofran) 4 mg Q6H PRN IVP Nausea & Vomiting 09/07/16 21:15 10/07/16 21:14 09/12/16 18:45 Polyethylene Glycol (Miralax) 17 gm DAILYPRN PRN ORAL Constipation 09/12/16 16:00 10/12/16 15:59 Polyethylene Glycol (Miralax) 17 gm HSPRN PRN ORAL Constipation 09/07/16 21:15 10/07/16 21:14 Temazepam (Restoril) 15 mg HSPRN PRN ORAL Insomnia 09/07/16 21:15 09/14/16 21:14 09/12/16 21:42 Warfarin Sodium 1 ea 1 ea DAILY PRN MISC Per rx protocol 09/09/16 18:30 10/09/16 18:29 RENEE LEYVA Sep 12, 2016 22:32
[2016-09-13] MEDS: Morphine Sulfate 2mg/ml Inj IVP PRN ×3 (02:30→13:04)
[2016-09-13 02:54] VITALS: BP 92/68
[2016-09-13 04:30] VITALS: BP 110/75
[2016-09-13 05:52] LABS: INR 1.3 (0.9-1.1); PROTHROMBIN TIME 13.4 SEC (9.30-11.50)
[2016-09-13 05:55] LABS: ANION GAP 14 (5-15); CALCIUM 8.5 mg/dL (8.6-10.2); CARBON DIOXIDE 25 mEQ/L (20-30); CHLORIDE 98 mEQ/L (98-107); CREATININE 1.3 mg/dL (0.7-1.2); GLOMERULAR FILTRATION RATE > 60 mL/min (>60); HEMOLYSIS 0; POTASSIUM 4.1 mEQ/L (3.4-4.9); SODIUM 137 mEQ/L (135-145)
[2016-09-13] MEDS ORDERED: Heparin 5000 units/ml inj IV ONE (06:15)
[2016-09-13] MEDS: Heparin 25,000u/D5W 500ml 500 ML IV SCH ×3 (06:44→13:31)
[2016-09-13 08:00] VITALS: BP 97/63
--- NOTE | 2016-09-13 08:12 | Infectious Diseases Prog Note ---
Assessment/Plan Assessment/Plan ASSESSMENT: 31 y/o male with: // HIV(+), not on cART, treatment naive - CD4 >600 per self-report // Afebrile without leukocytosis // [employer] with possible LV thrombus, on anticoagulation - TTE: EF 15-20%, grade III diastolic dysfunction, mod MR, TR, mod-sev pulmonary HTN // Abdominal pain - intractable, GI following, hepatitis panel(-) - CT A/P: no nephrolithiasis or hydronephrosis demonstrated. There is thickening of the gallbladder wall. Suspect small stones within the gallbladder. - US: pancreas, gallbladder, spleen appear unremarkable. The liver is enlarged. Subtle echogenic focus in the midpole the right kidney. No biliary ductal dilatation - elevated LFTs improved, lipase WNL // UDS(+) opiates, amphetamines // No ABX allergies // Full Code PLAN: - no indication for antimicrobials at this time. Monitor pt off of ABX - outpt f/u to consider HIV Rx - anticoagulation per cardiology - monitor CBC, temperatures - monitor CMP - GI following Subjective Allergies: Coded Allergies: CODEINE (Unverified Allergy, Unknown, 09/08/16) SHELLFISH DERIVED (Unverified Allergy, Unknown, 09/08/16) Subjective remains afebrile. c/o abdominal pain Objective Vital Signs Last 24 Hour Vital Signs Date Time Temp Pulse Resp B/P Pulse Ox O2 Delivery O2 Flow Rate FiO2 09/13/16 04:30 97.0 93 20 110/75 100 Room Air 09/13/16 04:00 89 09/13/16 02:54 97.0 100 20 92/68 98 Room Air 09/13/16 00:00 82 09/12/16 21:37 109 106/68 09/12/16 20:00 97.5 109 21 106/68 100 Room Air 09/12/16 20:00 102 09/12/16 16:00 120 09/12/16 16:00 98.1 97 21 92/70 98 Room Air 09/12/16 12:00 97.0 112 17 109/72 95 Room Air 09/12/16 12:00 102 09/12/16 09:00 116 118/64 Height (Feet): 6 Height (Inches): 1.00 Weight (Pounds): 182 General Appearance: no acute distress Respiratory/Chest: no respiratory distress Cardiovascular: normal rate, regular rhythm Abdomen: normal bowel sounds, non distended Laboratory Tests Test 09/13/16 05:30 Prothrombin Time 13.4 SEC (9.30-11.50) H Prothromb Time International Ratio 1.3 (0.9-1.1) H Activated Partial Thromboplast Time 54 SEC (23-33) H Sodium Level 137 mEQ/L (135-145) Potassium Level 4.1 mEQ/L (3.4-4.9) Chloride Level 98 mEQ/L (98-107) Carbon Dioxide Level 25 mEQ/L (20-30) Anion Gap 14 (5-15) Blood Urea Nitrogen 15 mg/dL (7-23) Creatinine 1.3 mg/dL (0.7-1.2) H Estimat Glomerular Filtration Rate > 60 mL/min (>60) Glucose Level 109 mg/dL (74-106) H Calcium Level 8.5 mg/dL (8.6-10.2) L Current Medications Medications (Trade) Dose Ordered Sig/Katie Route PRN Reason Start Time Stop Time Status Last Admin Dose Admin Acetaminophen (Tylenol) 650 mg Q4H PRN ORAL fever 09/07/16 21:15 10/07/16 21:14 09/12/16 22:27 Al Hydroxide/Mg Hydroxide (Mylanta II) 30 ml Q6H PRN ORAL dyspepsia 09/07/16 21:15 10/07/16 21:14 Carvedilol (Coreg) 6.25 mg EVERY 12 HOURS ORAL 09/12/16 21:00 10/12/16 20:59 09/12/16 21:37 Dextrose STAT PRN IV Hypoglycemia 09/07/16 21:15 10/07/16 21:14 Diphenhydramine HCl (Benadryl) 25 mg Q6H PRN ORAL Itching/Pruritis 09/07/16 21:15 10/07/16 21:14 09/10/16 01:44 Furosemide (Lasix) 20 mg BID ORAL 09/09/16 20:00 10/09/16 19:59 09/12/16 08:34 Heparin Sodium/ Dextrose (Heparin) 500 ml @ 47.881 mls/ hr adjust per protocol IV 09/13/16 06:04 10/08/16 20:59 09/13/16 06:44 Iron Sucrose/ Sodium Chloride (Venofer/Sodium Chloride) 60 ml @ 240 mls/hr BEDTIME IVPB 09/09/16 21:00 09/13/16 21:14 09/12/16 21:38 Morphine Sulfate (Morphine Sulfate) 2 mg EVERY 4 HOURS PRN IVP severe Pain (Pain Scale 7-10) 09/07/16 21:15 09/14/16 21:14 09/13/16 06:44 Nitroglycerin (Ntg) 0.4 mg Q5M X 3 DOSES PRN SL Prn Chest Pain 09/07/16 21:15 10/07/16 21:14 Ondansetron HCl (Zofran) 4 mg Q6H PRN IVP Nausea & Vomiting 09/07/16 21:15 10/07/16 21:14 09/12/16 18:45 Polyethylene Glycol (Miralax) 17 gm HSPRN PRN ORAL Constipation 09/07/16 21:15 10/07/16 21:14 Polyethylene Glycol 17 gm 17 gm DAILYPRN PRN ORAL Constipation 09/12/16 16:00 10/12/16 15:59 Temazepam (Restoril) 15 mg HSPRN PRN ORAL Insomnia 09/07/16 21:15 09/14/16 21:14 09/12/16 21:42 Warfarin Sodium (Coumadin per pharmacy) 1 ea DAILY PRN MISC Per rx protocol 09/09/16 18:30 10/09/16 18:29 RUBIN LING Sep 13, 2016 08:12
--- NOTE | 2016-09-13 11:34 | General Progress Note ---
Assessment/Plan Problem List: (1) Iron deficiency anemia ICD Codes: D50.9 - Iron deficiency anemia, unspecified SNOMED: 72193292 (2) Abdominal pain ICD Codes: R10.9 - Unspecified abdominal pain SNOMED: 79779712 (3) Psychosis ICD Codes: F29 - Unspecified psychosis not due to a substance or known physiological condition SNOMED: 49435080 (4) Fatty liver ICD Codes: K76.0 - Fatty (change of) liver, not elsewhere classified SNOMED: 771193796 (5) HIV (human immunodeficiency virus infection) ICD Codes: Z21 - Asymptomatic human immunodeficiency virus [HIV] infection status SNOMED: 55142160 Assessment/Plan iv iron fu H&H fu stool OB>>> neg pain control fu hepatitis panel>>> neg Subjective ROS Limited/Unobtainable: Yes Allergies: Coded Allergies: CODEINE (Unverified Allergy, Unknown, 09/08/16) SHELLFISH DERIVED (Unverified Allergy, Unknown, 09/08/16) Subjective no event Objective Last 24 Hour Vital Signs Date Time Temp Pulse Resp B/P Pulse Ox O2 Delivery O2 Flow Rate FiO2 09/13/16 09:07 96 97/56 09/13/16 08:00 97.0 87 16 97/63 99 Room Air 09/13/16 07:35 97 09/13/16 04:30 97.0 93 20 110/75 100 Room Air 09/13/16 04:00 89 09/13/16 02:54 97.0 100 20 92/68 98 Room Air 09/13/16 00:00 82 09/12/16 21:37 109 106/68 09/12/16 20:00 97.5 109 21 106/68 100 Room Air 09/12/16 20:00 102 09/12/16 16:00 120 09/12/16 16:00 98.1 97 21 92/70 98 Room Air 09/12/16 12:00 97.0 112 17 109/72 95 Room Air 09/12/16 12:00 102 Intake and Output 09/12/16 09/13/16 19:00 07:00 Intake Total 661.816 ml 852.053 ml Output Total 500 ml Balance 661.816 ml 352.053 ml Intake Oral 350 ml 540 ml IV Total 311.816 ml 312.053 ml Output Urine Total 500 ml # Voids 3 Laboratory Tests 09/13/16 05:30: Prothrombin Time 13.4H, Prothromb Time International Ratio 1.3H, Activated Partial Thromboplast Time 54H, Sodium Level 137, Potassium Level 4.1, Chloride Level 98, Carbon Dioxide Level 25, Anion Gap 14, Blood Urea Nitrogen 15, Creatinine 1.3H, Estimat Glomerular Filtration Rate > 60, Glucose Level 109H, Calcium Level 8.5L Height (Feet): 6 Height (Inches): 1.00 Weight (Pounds): 182 General Appearance: alert EENT: normal ENT inspection Neck: supple Cardiovascular: normal rate Respiratory/Chest: chest wall non-tender, lungs clear Abdomen: normal bowel sounds, non tender, soft Extremities: non-tender BECCA LAKE Sep 13, 2016 11:34
[2016-09-13 12:00] VITALS: BP 121/79
[2016-09-13 16:00] VITALS: BP 105/76
[2016-09-13] MEDS ORDERED: LORazepam 1mg tab ORAL PRN (16:15)
[2016-09-13] MEDS ORDERED: Warfarin Sod 4 MG, Warfarin Sod 5 MG PO ONE ×2 (17:00)
[2016-09-13] MEDS ORDERED: Pneumococcal Vaccine 25mcg/0.5ml IM ONE (18:00)
[2016-09-13] MEDS ORDERED: Influenza Virus Vaccine 0.5ml IM ONE (18:00)
[2016-09-13] MEDS ORDERED: XANAX0.25 MG ORAL (22:54)
[2016-09-13] MEDS ORDERED: COUMADIN1 MG ORAL (22:54)
--- NOTE | 2016-09-13 23:05 | Pulmonology Progress Note ---
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 (2) Abdominal pain (3) Hypotension (4) Intractable abdominal pain Assessment/Plan all notes reviewed echo reviewed ID consult appreciated optimize meds psych consult GI evaluation Subjective ROS Limited/Unobtainable: No Constitutional: Reports: anorexia, fatigue Gastrointestinal/Abdominal: Reports: bloating, nausea, vomiting Neurologic: Reports: weakness Allergies: Coded Allergies: CODEINE (Unverified Allergy, Unknown, 09/08/16) SHELLFISH DERIVED (Unverified Allergy, Unknown, 09/08/16) Objective Last 24 Hour Vital Signs Date Time Temp Pulse Resp B/P Pulse Ox O2 Delivery O2 Flow Rate FiO2 09/13/16 16:00 96.4 72 18 105/76 89 Room Air 09/13/16 12:00 96.8 114 17 121/79 99 Room Air 09/13/16 11:32 89 09/13/16 09:07 96 97/56 09/13/16 08:00 97.0 87 16 97/63 99 Room Air 09/13/16 07:35 97 09/13/16 04:30 97.0 93 20 110/75 100 Room Air 09/13/16 04:00 89 09/13/16 02:54 97.0 100 20 92/68 98 Room Air 09/13/16 00:00 82 Intake and Output 09/12/16 09/13/16 19:00 07:00 Intake Total 661.816 ml 852.053 ml Output Total 500 ml Balance 661.816 ml 352.053 ml Intake Oral 350 ml 540 ml IV Total 311.816 ml 312.053 ml Output Urine Total 500 ml # Voids 3 General Appearance: no acute distress HEENT: normocephalic, atraumatic, PERRL Respiratory/Chest: chest wall non-tender, decreased breath sounds, accessory muscle use Cardiovascular: normal peripheral pulses, normal rate, regular rhythm, no JVD Abdomen: normal bowel sounds, soft, non tender, no organomegaly Genitourinary: normal external genitalia Extremities: no cyanosis Skin: no rash 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
--- NOTE | 2016-09-15 10:21 | Discharge Summary ---
Discharge Summary Hospital Course Date of Admission Sep 07, 2016 at 20:16 Date of Discharge Sep 13, 2016 at 18:10 Admitting Diagnosis hypotension, cardiomyopathy HPI Chandler Muse is a 31 year old male who was admitted on Sep 07, 2016 at 20:16 for Hypotension,Cardiomyopathy Hospital Course dc summary #[id number] Discharge Discharge Disposition Patient was signed AMA Discharge Diagnoses: Discharge Instructions Discharge Instructions Special Instructions I have been assigned to complete a D/C Summary on this account. I was not involved in the patient management Maribel Miguel NP (Vanchtein) Sep 15, 2016 10:21
--- NOTE | 2016-09-15 23:29 | Discharge Summary 2 SIG ---
DATE OF ADMISSION: 09/07/2016 DATE OF DISCHARGE: 09/13/2016 DATE OF SIGNING AGAINST MEDICAL ADVICE: 09/13/2016 REASON FOR ADMISSION: The patient is a 31-year-old male, presented to emergency room with intractable abdominal pain and cramping for the last few days. He denied hematochezia, hematemesis, or melena. He did not report diarrhea. The patient denied any drug use or prior history of alcohol or drug abuse. The patient has known history of cardiomyopathy. Reports increased dizziness and some chest pain. He reported taking diuretic on a regular basis. He is not aware that he had heart disease. Workup in the emergency room was essentially unremarkable with creatinine of 1.3. Chest x-ray revealed cardiomegaly. No acute cardiopulmonary issues identified. The patient admitted to telemetry for further management. EKG also showed sinus tachycardia with the lateral T-wave inversion. CT of the abdomen and pelvis revealed evidence of gallbladder wall thickening with possible sludge and gallstones, but no dilated biliary ducts. The patient admitted for further management. ADMITTING DIAGNOSES: 1. Intractable abdominal pain. 2. Hypertension. 3. Cardiomyopathy. HOSPITAL STAY: The patient admitted. Cardiology and GI consults were requested. GI ordered abdominal ultrasound, which revealed hepatomegaly and fatty liver. The patient with evidence of iron deficiency anemia. The patient was on the IV iron while in the hospital. Hemoglobin and hematocrit were closely monitored and was stable. Stool for occult blood was negative. Hepatitis panel was checked and was negative. Emergency Department seen the patient. Echocardiogram revealed ejection fraction of 15 to 20% and right ventricular systolic pressure of 57 consistent with moderate to severe pulmonary hypertension. Evidence of valvular heart disease with moderate mitral regurgitation and moderate tricuspid regurgitation. In addition, echocardiogram demonstrated echogenic material at left ventricle apex, could not exclude apical thrombus. Cardiology started the patient on heparin drip and to bridge with Coumadin to reach therapeutic INR. Emergency Department has detailed discussion with the patient regarding need for frequent blood draw while on the Coumadin as well as the purpose of anticoagulation and risk of stroke if anticoagulation would not be taken. According to it programmer, the patient has acute component to his systolic congestive heart failure. The patient was on medical management with low dose of beta-chandra and diuretic. Renal parameters, intake and output, and electrolytes were closely monitored. Emergency Department planned to add CHRIS inhibitor to the reduced afterload if blood pressure allowed. The patient has a known history of HIV. Infectious Disease doctor consult was requested. According to Infectious Disease doctor, the patient is not on any CART therapy. CD4 more than 600. The patient was treatment naive according to the patient. Infectious Disease doctor recommended the patient to start treatment and follow up with ID doctor specializing in HIV treatment as outpatient. The patient has a history of asthma, stable pulmonary status. Pulse oximetry stable on room air. No evidence of exacerbation. Pulmonary toilet was ordered as needed. The patient was not in need of nebulizing treatment at this time. Of note, also it programmer stated that the patient's chest pain that he reported in conjunction with abdominal pain is atypical, most likely related to CHF with acute component. The patient decided to sign against medical advice since he was not allowed to go smoking. FINAL DIAGNOSES: 1. Chronic congestive heart failure with acute component. 2. Cardiomyopathy (likely nonischemic). 3. Acute left ventricular thrombus. 4. [id number] pulmonary hypertension. 5. Valvular heart disease (moderate mitral regurgitation and moderate tricuspid regurgitation). 6. Human immunodeficiency virus status. 7. History of asthma. 8. Iron deficiency anemia. 9. Hypertension. 10. Psychosis. 11. Fatty liver. Of note, hepatitis panel was negative. Pain management provided. The patient signed against medical advice form and left. Elisa Liu M.D. I have been assigned to dictate discharge summary on this account and I was not involved in the patient's management. Maribel grieradonis NKevin DR: KUNAL JOB#: [id number] CC:
== END 2016-09-13 18:10 | disposition left against medical advice (07) | DRG 194 ==
LOC: EMR 19:12 → 2E 20:16 → EDBEDREQ 22:09
DX: I50.23 Acute on chronic systolic (congestive) heart failure (principal); B20 Human immunodeficiency virus [HIV] disease; I42.9 Cardiomyopathy, unspecified; I51.3 Intracardiac thrombosis, not elsewhere classified; I27.2 Other secondary pulmonary hypertension; D50.9 Iron deficiency anemia, unspecified; I10 Essential (primary) hypertension; F17.200 Nicotine dependence, unspecified, uncomplicated; R07.89 Other chest pain; J45.909 Unspecified asthma, uncomplicated; D64.9 Anemia, unspecified; F41.8 Other specified anxiety disorders; Z88.6 Allergy status to analgesic agent; R10.9 Unspecified abdominal pain; I08.1 Rheumatic disorders of both mitral and tricuspid valves; F29 Unspecified psychosis not due to a substance or known physiological condition; K76.0 Fatty (change of) liver, not elsewhere classified; Z23 Encounter for immunization
CPT/HCPCS: 36415; 71010; 74176; 76700; 80048; 80053; 80300; 81003; 82150; 82270; 82607; 82746; 83540; 83550; 83690; 84484; 85025; 85610; 85730; 86705; 86709; 86803; 86850; 86900; 86901; 87340; 90732; 93005; 93306; J2405; Q2036

== ENCOUNTER 2016-09-13 22:47 | Emergency (ER) | payer OTHER ==
[~2016-09-13] VITALS: Ht 185.4 cm; Wt 79.4 kg
[~2016-09-13 22:47] MED LIST changes: +FUROSEMIDE20 M1 PO; +POTASSIUM CHLO10 ME3 PO; +VENTOLIN HFA18 GM
[2016-09-13] MEDS ORDERED: COUMADIN1 MG ORAL (22:54)
[2016-09-13] MEDS ORDERED: XANAX0.25 MG ORAL (22:54)
[2016-09-13 23:15] VITALS: BP 118/72
[2016-09-13] MEDS ORDERED: Morphine Sulfate 4mg/ml Inj IVP ONE (23:15)
[2016-09-13] MEDS ORDERED: Famotidine 20 MG/ 2ML VIAL IVP ONE (23:15)
[2016-09-13 23:41] LABS: BASOPHILS % (AUTO) 0.5 % (0.0-2.0); EOSINOPHILS % (AUTO) 0.2 % (0.0-3.0); LYMPHOCYTES % (AUTO) 25.5 % (20.0-45.0); MEAN CORPUSCULAR HGB CONC 31.4 G/DL (32.0-36.0); MEAN CORPUSCULAR VOLUME 77 FL (80-99); MEAN PLATELET VOLUME 6.6 FL (6.5-10.1); MONOCYTES % (AUTO) 9.8 % (1.0-10.0); PLATELET COUNT 269 K/UL (150-450); RED BLOOD COUNT 4.03 M/UL (4.70-6.10); RED CELL DISTRIBUTION WIDTH 14.3 % (11.6-14.8); WHITE BLOOD COUNT 5.1 K/UL (4.8-10.8)
[2016-09-14 00:02] LABS: ALANINE AMINOTRANSFERASE 61 U/L (3-41); ALBUMIN/GLOBULIN RATIO 0.8 (1.0-2.7); ANION GAP 14 (5-15); ASPARTATE AMINO TRANSFERASE 57 U/L (5-40); CALCIUM 8.8 mg/dL (8.6-10.2); CARBON DIOXIDE 24 mEQ/L (20-30); CHLORIDE 98 mEQ/L (98-107); CREATININE 1.4 mg/dL (0.7-1.2); GLOMERULAR FILTRATION RATE > 60 mL/min (>60); HEMOLYSIS 1; LIPASE 12 U/L (< 60); POTASSIUM 4.4 mEQ/L (3.4-4.9); SODIUM 136 mEQ/L (135-145); TOTAL PROTEIN 6.3 g/dL (6.6-8.7)
[2016-09-14 00:04] LABS: TROPONIN I < 0.30 ng/mL (<=0.30)
[2016-09-14 00:12] LABS: CKMB 1.6 ng/mL (< 6.7)
[2016-09-14] MEDS ORDERED: Diltiazem 25mg/5ml IV PRN (00:15)
[2016-09-14] MEDS ORDERED: Ketorolac 30mg Inj IV PRN (00:15)
[2016-09-14] MEDS ORDERED: Nitroglycerin Subl 0.4mg tab (Bottle Of 25) SL PRN (00:15)
[2016-09-14] MEDS ORDERED: Heparin 25,000u/D5W 500ml 500 ML IV SCH (00:15)
[2016-09-14] MEDS ORDERED: Miralax 17gm pkt ORAL PRN (00:15)
[2016-09-14] MEDS ORDERED: Enalaprilat 2.5mg/2ml Inj IV PRN (00:15)
[2016-09-14] MEDS ORDERED: Morphine Sulfate 2mg/ml Inj IVP PRN (00:15)
[2016-09-14] MEDS ORDERED: DuoNeb 0.5-3(2.5)mg/3ml neb HHN PRN (00:15)
[2016-09-14 00:43] LABS: INR 1.3 (0.9-1.1); PROTHROMBIN TIME 13.6 SEC (9.30-11.50)
[2016-09-14 01:15] VITALS: BP 102/68
[2016-09-14] MEDS ORDERED: Enoxaparin 80mg Inj SUBQ ONE (01:15)
--- NOTE | 2016-09-14 02:20 | Emergency Room Report ---
History of Present Illness General Chief Complaint: Abdominal Pain Source: Patient, Medical Record Present Illness HPI 31-year-old male presents to ED complaining of abdominal pain. States pain started a few hours ago. Pain is sharp, right-sided, 8/10, nonradiating. No aggravating or relieving factors. Denies chest pain or shortness of breath. Patient states he left from this hospital AMA morning for the same abdominal pain. patient states he was not receiving adequate pain medication so he left. No other aggravating relieving factors. Denies any other associated symptoms Allergies: Coded Allergies: CODEINE (Unverified Allergy, Unknown, 09/08/16) SHELLFISH DERIVED (Unverified Allergy, Unknown, 09/08/16) Patient History Past Medical History: asthma, other - cardiomyopathy Past Surgical History: none Pertinent Family History: none Social History: Denies: alcohol use, drug use, smoking Immunizations: UTD Reviewed Nursing Documentation: PMH: Agreed, PSxH: Agreed Nursing Documentation-PMH Hx Cardiac Problems: Yes Hx Asthma: Yes Hx Cancer: No Hx Gastrointestinal Problems: Yes - abdominal pain Hx Neurological Problems: No Hx Dizziness: Yes Review of Systems All Other Systems: negative except mentioned in HPI Physical Exam Vital Signs Date Time Temp Pulse Resp B/P Pulse Ox O2 Delivery O2 Flow Rate FiO2 09/13/16 22:50 98.6 122 16 118/72 99 Room Air Sp02 EP Interpretation: reviewed, normal General Appearance: no apparent distress, alert, GCS 15, non-toxic Head: normocephalic, atraumatic Eyes: bilateral eye PERRL, bilateral eye normal inspection ENT: hearing grossly normal, normal pharynx, no angioedema, normal voice Neck: full range of motion, supple/symm/no masses Respiratory: chest non-tender, lungs clear, normal breath sounds, speaking full sentences Cardiovascular #1: regular rate, rhythm, no edema Cardiovascular #2: 2+ carotid (R), 2+ carotid (L), 2+ radial (R), 2+ radial (L) , 2+ dorsalis pedis (R), 2+ dorsalis pedis (L) Gastrointestinal: normal bowel sounds, soft, non-distended, no guarding, no rebound, tenderness - RUQ Rectal: deferred Genitourinary: normal inspection, no CVA tenderness Musculoskeletal: back normal, gait/station normal, normal range of motion, non- tender Neurologic: alert, oriented x3, responsive, motor strength/tone normal, sensory intact, speech normal Psychiatric: judgement/insight normal, memory normal, mood/affect normal, no suicidal/homicidal ideation Reflexes: 3+ bicep (R), 3+ bicep (L), 3+ tricep (R), 3+ tricep (L), 3+ knee (R) , 3+ knee (L) Skin: normal color, no rash, warm/dry, well hydrated Lymphatic: no adenopathy Medical Decision Making Diagnostic Impression: Primary Impression: Cardiomyopathy of end-stage congenital heart disease Additional Impression: Intractable abdominal pain ER Course Hospital Course 31-year-old male presents to ED with right-sided abdominal pain. Differential diagnoses include: BPH, cystitis, pyelonephritis, kidney stone Clinical course Patient placed on stretcher. lunchroom monitor. After initial history and physical I ordered labs, IV fluids, UA, pain medication Labs - no leukocytosis, Hb/Hct stable. electrolytes ok, LFTs ok I reviewed EMR. On recent admission patient had ultrasound which was essentially unremarkable. Patient had CT which showed gallstones and gallbladder with some gallbladder wall thickening. Patient was evaluated by cardiology for his cardiomyopathy. Also evaluated by GI. Before further evaluation patient left AMA. Patient states pain is getting worse and he agreed to stay Because of insurance patient will be transferred I feel this is a highly complex case requiring extensive working including EKG/ Rhythm strip, Xray/CT/US, Blood/urine lab work, repeat exams while in ED, and administration of strong opiates/narcotics for pain control, admission to hospital or close patient follow up. Diagnosis - cardiomyopathy, intractable abd pain Transferred in serious condition Labs Test 09/13/16 23:27 White Blood Count 5.1 K/UL (4.8-10.8) Red Blood Count 4.03 M/UL (4.70-6.10) Hemoglobin 9.7 G/DL (14.2-18.0) Hematocrit 30.8 % (42.0-52.0) Mean Corpuscular Volume 77 FL (80-99) Mean Corpuscular Hemoglobin 24.0 PG (27.0-31.0) Mean Corpuscular Hemoglobin Concent 31.4 G/DL (32.0-36.0) Red Cell Distribution Width 14.3 % (11.6-14.8) Platelet Count 269 K/UL (150-450) Mean Platelet Volume 6.6 FL (6.5-10.1) Neutrophils (%) (Auto) 64.0 % (45.0-75.0) Lymphocytes (%) (Auto) 25.5 % (20.0-45.0) Monocytes (%) (Auto) 9.8 % (1.0-10.0) Eosinophils (%) (Auto) 0.2 % (0.0-3.0) Basophils (%) (Auto) 0.5 % (0.0-2.0) Prothrombin Time 13.6 SEC (9.30-11.50) Prothromb Time International Ratio 1.3 (0.9-1.1) Activated Partial Thromboplast Time 26 SEC (23-33) Sodium Level 136 mEQ/L (135-145) Potassium Level 4.4 mEQ/L (3.4-4.9) Chloride Level 98 mEQ/L (98-107) Carbon Dioxide Level 24 mEQ/L (20-30) Anion Gap 14 (5-15) Blood Urea Nitrogen 18 mg/dL (7-23) Creatinine 1.4 mg/dL (0.7-1.2) Estimat Glomerular Filtration Rate > 60 mL/min (>60) Glucose Level 106 mg/dL (74-106) Calcium Level 8.8 mg/dL (8.6-10.2) Total Bilirubin 0.4 mg/dL (0.0-1.2) Aspartate Amino Transf (AST/SGOT) 57 U/L (5-40) Alanine Aminotransferase (ALT/SGPT) 61 U/L (3-41) Alkaline Phosphatase 120 U/L (40-129) Total Creatine Kinase 74 U/L (38-174) Creatine Kinase MB 1.6 ng/mL (< 6.7) Creatine Kinase MB Relative Index 2.1 Troponin I < 0.30 ng/mL (<=0.30) Pro-B-Type Natriuretic Peptide 6298 pg/mL (0-125) Total Protein 6.3 g/dL (6.6-8.7) Albumin 2.9 g/dL (3.5-5.2) Globulin 3.4 g/dL Albumin/Globulin Ratio 0.8 (1.0-2.7) Lipase 12 U/L (< 60) EKG Diagnostic Results Rate: normal Rhythm: NSR ST Segments: other - twae inversions in lateral leads ASA given to the pt in ED: No Rhythm Strip Diag. Results EP Interpretation: yes Rhythm: NSR, no PVC's, no ectopy Chest X-Ray Diagnostic Results EP Interpretation: Yes Findings: no consolidation, no effusion, no pneumothorax, no acute cardiopulmonary disease, other - cardiomegaly Number of Views: 1 Last Vital Signs Date Time Temp Pulse Resp B/P Pulse Ox O2 Delivery O2 Flow Rate FiO2 09/14/16 01:15 98.4 96 18 102/68 97 Room Air Status: improved Disposition: XFER [facility] Condition: Serious Referrals: [facility] (PCP) JOHAN COOPER M.D. Sep 14, 2016 02:20
[2016-09-14 02:45] VITALS: BP 105/66
[2016-09-14] MEDS ORDERED: NovoLOG Insulin Flexpen SUBQ SCH (06:30)
--- NOTE | 2016-09-14 08:52 | Diagnostic Imaging Report ---
Indication: Shortness of breath Technique: Single portable AP view of the chest. Findings: Comparison: 09/07/16 Left costophrenic angle excluded from image. Cardiac silhouette remains upper limits of normal in size. The bones and extra pulmonary soft tissues, cardiomediastinal silhouette, pulmonary vasculature and parenchyma, and pleural surfaces are otherwise unremarkable. IMPRESSION: No evidence of acute cardiopulmonary disease, limited as described, unchanged Stable borderline cardiomegaly-cardiomyopathy not excludable.
[2016-09-14] MEDS ORDERED: Aspirin Baby 81mg ORAL SCH (09:00)
[2016-09-14] MEDS ORDERED: ALPRAZolam 0.25mg tab ORAL SCH (09:00)
--- NOTE | 2016-09-14 11:00 | Cardiology Report ---
APPROVED REPORT EKG Measurement Heart [id number] MD [id number] Normal sinus rhythm Possible Left atrial enlargement Incomplete right bundle branch block Left anterior fascicular block Cannot rule out Anterior infarct, age undetermined T wave abnormality, consider lateral ischemia Abnormal ECG
== END 2016-09-14 02:50 | disposition short-term general hospital (02) ==
LOC: EDBD 22:47 → EDUNIT# 22:47 → EMR 23:07
DX: I42.8 Other cardiomyopathies (principal); Q24.9 Congenital malformation of heart, unspecified; R10.9 Unspecified abdominal pain; Z88.6 Allergy status to analgesic agent; Z91.013 Allergy to seafood; J45.909 Unspecified asthma, uncomplicated
CPT/HCPCS: 36415; 71010; 80053; 82550; 82553; 83690; 83880; 84484; 85025; 85610; 85730; 93005; 96360; 96374; 96375; 99285; J1650; J2270; J2405; J7040; S0028

== ENCOUNTER 2016-10-04 22:49 | Emergency (ER) | payer OTHER ==
[~2016-10-04] VITALS: Ht 185.4 cm; Wt 72.6 kg
[~2016-10-04 22:49] MED LIST changes: +COUMADIN1 MG ORAL; +XANAX0.25 MG ORAL
[2016-10-04 23:15] VITALS: BP 104/68
[2016-10-05 00:37] VITALS: BP 109/72
[2016-10-05 00:42] LABS: TROPONIN I < 0.30 ng/mL (<=0.30)
--- NOTE | 2016-10-05 00:49 | Emergency Room Report ---
History of Present Illness General Chief Complaint: Chest Pain Source: Patient Present Illness HPI Is a 31-year-old male with a history of cardiomyopathy with chronic chest pain chronic abdominal pain. He has severe cardiomyopathy with ejection fraction around 15-20%. He is not have an AICD. He complained of chest pain abdominal pain going on chronically for months. But workup has been negative. He was here about 2-3 weeks ago. Afterward he went to [facility] about 4 days ago. Initially he denied it. But I saw the discharge paperwork from them. He complaining of generalized pain. No nausea no vomiting or diarrhea. No radiation. Nothing made it better nothing made it worse. He walked in here. Allergies: Coded Allergies: CODEINE (Unverified Allergy, Unknown, 09/08/16) SHELLFISH DERIVED (Unverified Allergy, Unknown, 09/08/16) Patient History Past Medical History: see triage record, old chart reviewed Past Surgical History: other Pertinent Family History: none Social History: Reports: drug use Immunizations: other Reviewed Nursing Documentation: PMH: Agreed, PSxH: Agreed Nursing Documentation-PMH Past Medical History: No History, Except For Hx Cardiac Problems: Yes - CHF, HIV Hx Asthma: Yes Hx Cancer: No Hx Gastrointestinal Problems: Yes - abdominal pain Hx Neurological Problems: No Hx Dizziness: Yes Review of Systems Eye: Denies: blurred vision, eye pain ENT: Denies: ear pain, nose congestion, throat swelling Respiratory: Denies: cough, shortness of breath Cardiovascular: Reports: chest pain, Denies: palpitations Gastrointestinal: Reports: abdominal pain, Denies: diarrhea, nausea, vomiting Musculoskeletal: Denies: back pain, joint pain Skin: Denies: rash Neurological: Denies: headache, numbness Endocrine: Denies: increased thirst, increased urine Hematologic/Lymphatic: Denies: easy bruising All Other Systems: negative except mentioned in HPI Physical Exam Vital Signs Date Time Temp Pulse Resp B/P Pulse Ox O2 Delivery O2 Flow Rate FiO2 10/04/16 23:01 98.2 113 14 104/68 100 Room Air vitals normal Sp02 EP Interpretation: reviewed, normal General Appearance: well appearing, no apparent distress, alert, other - Sleeping comfortably Head: normocephalic, atraumatic Eyes: bilateral eye EOMI, bilateral eye PERRL ENT: hearing grossly normal, normal pharynx Neck: full range of motion, supple, no meningismus Respiratory: chest non-tender, lungs clear, normal breath sounds Cardiovascular #1: regular rate, rhythm, no murmur Gastrointestinal: normal bowel sounds, non tender, no mass, no organomegaly, no bruit, non-distended Musculoskeletal: back normal, gait/station normal, normal range of motion Psychiatric: mood/affect normal Skin: warm/dry Medical Decision Making Diagnostic Impression: Primary Impression: Chest pain Qualified Codes: R07.9 - Chest pain, unspecified Additional Impressions: Abdominal pain Qualified Codes: R10.84 - Generalized abdominal pain History of amphetamine abuse ER Course She presents with chronic chest and abdominal pain. Recent workup negative. He sleeping comfortably. No evidence of fluid overloaded. X-ray normal. Troponin negative. EKG unremarkable. We'll discharge home. Lab Results Impression troponin negative EKG Diagnostic Results Rate: normal Rhythm: NSR ST Segments: other - Nonspecific ST changes. No change. Chest X-Ray Diagnostic Results EP Interpretation: Yes Findings: no consolidation, no effusion, no pneumothorax, no acute cardiopulmonary disease, other - Cardiomyopathy Number of Views: 1 Last Vital Signs Date Time Temp Pulse Resp B/P Pulse Ox O2 Delivery O2 Flow Rate FiO2 10/04/16 23:01 98.2 113 14 104/68 100 Room Air Status: improved Disposition: HOME, SELF-CARE Condition: Stable Referrals: NON PHYSICIAN (PCP) Patient Instructions: Nonspecific Chest Pain Additional Instructions: Followup with your DrDavy in 7 days. Take your medication. Return if worse. ALVINA SHIRLEY M.D. Oct 05, 2016 00:49
[2016-10-05 00:55] VITALS: BP 104/68
--- NOTE | 2016-10-05 12:01 | Diagnostic Imaging Report ---
Indication: Chest pain Technique: One view of the chest Comparison: 09/13/2016 Findings: As previously, the heart is enlarged. Lungs and pleural spaces are clear. No significant change Impression: Acute process Cardiomegaly
== END 2016-10-05 00:55 | disposition home or self-care (01) ==
LOC: EMR 23:15
DX: R07.9 Chest pain, unspecified (principal); R10.9 Unspecified abdominal pain; I50.9 Heart failure, unspecified; J45.909 Unspecified asthma, uncomplicated; I51.7 Cardiomegaly; Z88.6 Allergy status to analgesic agent; Z91.013 Allergy to seafood
CPT/HCPCS: 71010; 84484; 93005; 99283

== ENCOUNTER 2016-12-09 16:08 | Outpatient (CLI) | payer OTHER ==
--- NOTE | 2016-12-09 16:55 | Diagnostic Imaging Report ---
Indications: Altered mental status, headaches HIV-positive Technique: Sagittal and axial T1 weighted FLAIR, axial T2-weighted fat saturated fast spin echo propeller, T2-weighted FLAIR, and diffusion sequences of the brain were performed without IV gadolinium administration. Patient refused completion of exam. Findings: Comparison: None Axial T1-weighted sequence significantly degraded by motion, uninterpretable. Lack of gradient echo images further limits evaluation. 2 small foci of T2 signal hyperintensity scattered throughout bilateral cerebral white matter. No evidence of mass or hemorrhage, other signal abnormality, mass effect, midline shift, hydrocephalus, or increased intracranial pressure. No restricted diffusion. Central vascular flow voids are preserved. IMPRESSION: No evidence of acute intracranial pathology, limited as described Bilateral cerebral white matter oligofocal signal hyperintensity, nonspecific, of questionable clinical significance.
== END 2016-12-09 17:28 | disposition home or self-care (01) ==
LOC: MRI 16:08
DX: R41.82 Altered mental status, unspecified (principal); R51 Headache
CPT/HCPCS: 70551

== ENCOUNTER 2016-12-22 01:39 | Emergency (ER) | payer OTHER ==
[~2016-12-22] VITALS: Ht 185.4 cm; Wt 68.0 kg
[2016-12-22] MEDS ORDERED: ALBUTEROL2.5 MG/3 M INH (01:44)
--- NOTE | 2016-12-22 02:10 | Emergency Room Report ---
History of Present Illness General Chief Complaint: Pain Source: Patient Present Illness HPI Is a 31-year-old male with history of nonischemic cardiomyopathy and a chest. He's not compliant with his medication. History of amphetamine abuse in the past. He also has a history of chronic abdominal and chest pain. He was just discharged from the hospital a week ago. Said he does not have his medication with him for the last few days. Complaining of generalized body pain with increasing pedal edema. No fever or chills. Said he felt shortness of breath. No nausea no vomiting. Pain is 10 out of 10. Out of his pain medication also. No other complaint. Allergies: Coded Allergies: CODEINE (Unverified Allergy, Unknown, 09/08/16) SHELLFISH DERIVED (Unverified Allergy, Unknown, 09/08/16) Patient History Past Medical History: see triage record, old chart reviewed, CHF, asthma Past Surgical History: other Pertinent Family History: none Social History: Reports: drug use Immunizations: other Reviewed Nursing Documentation: PMH: Agreed, PSxH: Agreed Nursing Documentation-PMH Hx Cardiac Problems: Yes - CHF, HIV + Hx Hypertension: Yes Hx Asthma: Yes Hx Cancer: No Hx Gastrointestinal Problems: Yes - abdominal pain Hx Neurological Problems: No Hx Dizziness: Yes Review of Systems Eye: Denies: blurred vision, eye pain ENT: Denies: ear pain, nose congestion, throat swelling Respiratory: Reports: shortness of breath, Denies: cough Cardiovascular: Reports: chest pain, Denies: palpitations Gastrointestinal: Reports: abdominal pain, Denies: diarrhea, nausea, vomiting Musculoskeletal: Denies: back pain, joint pain Skin: Denies: rash Neurological: Denies: headache, numbness Endocrine: Denies: increased thirst, increased urine Hematologic/Lymphatic: Denies: easy bruising All Other Systems: negative except mentioned in HPI Physical Exam Vital Signs Date Time Temp Pulse Resp B/P Pulse Ox O2 Delivery O2 Flow Rate FiO2 12/22/16 01:39 97.2 78 14 114/78 98 Room Air vitals normal Sp02 EP Interpretation: reviewed, normal General Appearance: well appearing, no apparent distress, alert Head: normocephalic, atraumatic Eyes: bilateral eye EOMI, bilateral eye PERRL ENT: hearing grossly normal, normal pharynx Neck: full range of motion, supple, no meningismus Respiratory: chest non-tender, lungs clear, normal breath sounds Cardiovascular #1: regular rate, rhythm, no murmur Gastrointestinal: normal bowel sounds, non tender, no mass, no organomegaly, no bruit, non-distended Musculoskeletal: back normal, normal range of motion, other - 1+ pitting edema Psychiatric: mood/affect normal Skin: warm/dry Medical Decision Making Diagnostic Impression: Primary Impression: Cardiomyopathy of end-stage congenital heart disease Additional Impression: Abdominal pain Qualified Codes: R10.84 - Generalized abdominal pain ER Course Patient with chronic pain complaint. Also increasing edema because she's been out of his Bumex. He claimed that Lasix given severe pain and cramps so he just that as an allergy. I gave him a dose of Bumex here. No evidence of overt pulmonary edema or vascular congestion. We'll discharge home. Chest X-Ray Diagnostic Results Chest X-Ray Diagnostic Results : Chest X-Ray Ordered: Yes # of Views/Limited/Complete: 1 View Indication: Shortness of Breath EP Interpretation: Yes Interpretation: no consolidation, no effusion, no pneumothorax, other - CM Impression: No acute disease Interpreting ER Provider: Electronically Interpreted by Oscar White MD Last Vital Signs Date Time Temp Pulse Resp B/P Pulse Ox O2 Delivery O2 Flow Rate FiO2 12/22/16 01:39 97.2 78 14 114/78 98 Room Air Status: improved Disposition: HOME, SELF-CARE Condition: Stable Scripts Bumetanide* (BUMETANIDE*) 1 Mg Tablet 1 MG ORAL DAILY, #30 TAB Prov: OSCAR WHITE M.D. 12/22/16 Additional Instructions: Take your medication. Followup with your DrDavy in 2-3 days. Return if worse. OSCAR WHITE M.D. Dec 22, 2016 02:10
[2016-12-22] MEDS ORDERED: Bumetanide 1mg tab ORAL ONE (02:15)
[2016-12-22] MEDS ORDERED: BUMETANIDE1 MG ORAL (02:39)
[2016-12-22 04:06] VITALS: BP 126/82
[2016-12-22 06:01] VITALS: BP 97/55
[2016-12-22 06:37] VITALS: BP 97/55
[2016-12-22] MEDS ORDERED: Bumetanide 1mg tab ORAL SCH (09:00)
--- NOTE | 2016-12-22 11:37 | Diagnostic Imaging Report ---
Indication: Dyspnea Comparison: 10/04/16 A single view chest radiograph was obtained. Findings: There is ill-defined focus of groundglass airspace disease at the right lung base suspicious for pneumonia. No definite pleural effusion seen. Generalized moderate cardiomegaly is present. Impression: Right basilar airspace disease consistent with pneumonia. Please correlate clinically. Cardiomegaly disproportionate to age. Suspect cardiomyopathy.
== END 2016-12-22 06:45 | disposition home or self-care (01) ==
LOC: EDBD 01:39 → EMR 01:45
DX: I42.4 Endocardial fibroelastosis (principal); Q24.9 Congenital malformation of heart, unspecified; R10.84 Generalized abdominal pain; J45.909 Unspecified asthma, uncomplicated; I10 Essential (primary) hypertension; I50.9 Heart failure, unspecified; Z88.6 Allergy status to analgesic agent; Z91.013 Allergy to seafood
CPT/HCPCS: 71010; 99283

== ENCOUNTER 2016-12-27 20:15 | Inpatient (IN) | payer OTHER ==
[~2016-12-27] VITALS: Ht 185.4 cm; Wt 68.0 kg
[~2016-12-27 20:15] MED LIST changes: +ALBUTEROL2.5 MG/3 M INH; +BUMETANIDE1 MG ORAL
[2016-12-27 20:47] VITALS: BP 94/56
--- NOTE | 2016-12-27 21:44 | Emergency Room Report ---
History of Present Illness General Chief Complaint: Edema Source: Patient Present Illness HPI 31YOM Walk-in, known severe decreased EF 20%, cardiomyopathy, HIV not on HAART, LV thrombus, anemia, etc with worsening lower extremity edema despite taking Bumex. Associated with chest pain on exertion. Associated with cough, subjective fever/chills. Review of last visit 1 week prior shows CXR with right lower lobe PNA. However was not commented on by ER MD and patient was DCed without Abx. Allergies: Coded Allergies: CODEINE (Unverified Allergy, Unknown, 09/08/16) FUROSEMIDE (Verified Allergy, Unknown, 12/27/16) LATEX (Verified Allergy, Unknown, 12/27/16) SHELLFISH DERIVED (Unverified Allergy, Unknown, 09/08/16) Patient History Past Medical History: CHF, HIV, other - see HPI Past Surgical History: none Pertinent Family History: none Social History: Reports: drug use Immunizations: UTD Reviewed Nursing Documentation: PMH: Agreed, PSxH: Agreed Nursing Documentation-PMH Past Medical History: No History, Except For Hx Cardiac Problems: Yes - CHF, HIV + Hx Hypertension: Yes Hx Asthma: Yes Hx Cancer: No Hx Gastrointestinal Problems: Yes - abdominal pain Hx Neurological Problems: No Hx Dizziness: Yes Review of Systems All Other Systems: negative except mentioned in HPI Physical Exam Vital Signs Date Time Temp Pulse Resp B/P Pulse Ox O2 Delivery O2 Flow Rate FiO2 12/27/16 20:24 99.5 106 18 90/50 94 Room Air Sp02 EP Interpretation: reviewed, abnormal General Appearance: normal inspection, well appearing, no apparent distress, alert, GCS 15, non-toxic Head: normocephalic, atraumatic Eyes: bilateral eye EOMI, bilateral eye PERRL ENT: normal ENT inspection, hearing grossly normal, normal voice Neck: normal inspection, full range of motion, supple, no bony tend Respiratory: normal inspection, lungs clear, normal breath sounds, no respiratory distress, no retraction, no accessory muscle use, no wheezing, rhonchi Cardiovascular #1: regular rate, rhythm, no edema Gastrointestinal: normal inspection, normal bowel sounds, non tender, soft, no guarding, no hernia Genitourinary: no CVA tenderness Musculoskeletal: normal inspection, back normal, normal range of motion, Santi' s Sign negative Neurologic: normal inspection, alert, oriented x3, responsive, waste machine operator III-XII nml as tested, motor strength/tone normal, speech normal Psychiatric: normal inspection, judgement/insight normal, mood/affect normal Skin: normal inspection, normal color, no rash Medical Decision Making Diagnostic Impression: Primary Impression: Edema Qualified Codes: R60.0 - Localized edema Additional Impressions: Pneumonia Qualified Codes: J18.1 - Lobar pneumonia, unspecified organism Elevated LFTs Right upper quadrant abdominal pain Chest pain Qualified Codes: R07.9 - Chest pain, unspecified ASHLEE (acute kidney injury) ER Course Chest pain - No previous ECG to visually compare if TWI are new but Empiric ASA given. Troponin 0. Unlikely ACS however needs ACS rule out with serial trop given known LV thrombus, severe cardiomyopathy. - Mild elevation in BNP. Likely chronic CHF - IV bumex given with diureses PNA - Seen again is RLL PNA - Right lower lobe rhonchi on exam - Blood Cx sent - Abx given Elevated LFTs - On Serial exam, does have some ttp to RUQ. No rebound or guarding. - Previous hepatitis panel was negative - Previous CTAP, Abd sono showed ?GB stones, sludge but no definitive cholecystitis - ABd sono ordered here but patient refused because he was upset he was being transferred Endorsed to Dr Harvey for transfer to [place] at 1130pm to tele bed Informed Dr Wilson of patient's refusal to do abd sono here EKG Diagnostic Results Rate: normal Rhythm: NSR ST Segments: other - V5 and [address] depression in v5 ASA given to the pt in ED: No Rhythm Strip Diag. Results EP Interpretation: yes Rate: 99 Rhythm: NSR, no PVC's, no ectopy Chest X-Ray Diagnostic Results Chest X-Ray Diagnostic Results : Chest X-Ray Ordered: Yes # of Views/Limited/Complete: 1 View Indication: Chest Pain EP Interpretation: Yes Interpretation: no effusion, no pneumothorax, no acute cardiopulmonary disease, other - RLL PNA Impression: Other - RLL PNA Interpreting ER Provider: Electronically signed by Dr Upton Last Vital Signs Date Time Temp Pulse Resp B/P Pulse Ox O2 Delivery O2 Flow Rate FiO2 12/27/16 20:47 99.3 102 17 94/56 95 Room Air Status: improved Disposition: ADMITTED INPATIENT Condition: Serious Referrals: [facility],REFERRING (PCP) POORNIMA UPTON M.D. Dec 27, 2016 21:43
[2016-12-27 21:45] VITALS: BP 98/56
[2016-12-27 21:55] LABS: BASOPHILS % (AUTO) 1.5 % (0.0-2.0); EOSINOPHILS % (AUTO) 0.4 % (0.0-3.0); LYMPHOCYTES % (AUTO) 17.5 % (20.0-45.0); MEAN CORPUSCULAR HEMOGLOBIN 24.2 PG (27.0-31.0); MEAN CORPUSCULAR HGB CONC 30.9 G/DL (32.0-36.0); MEAN CORPUSCULAR VOLUME 78 FL (80-99); MEAN PLATELET VOLUME 6.7 FL (6.5-10.1); MONOCYTES % (AUTO) 13.4 % (1.0-10.0); NEUTROPHILS % (AUTO) 67.2 % (45.0-75.0); PLATELET COUNT 232 K/UL (150-450); RED BLOOD COUNT 4.07 M/UL (4.70-6.10); RED CELL DISTRIBUTION WIDTH 21.8 % (11.6-14.8); WHITE BLOOD COUNT 8.2 K/UL (4.8-10.8)
[2016-12-27 22:07] LABS: ALANINE AMINOTRANSFERASE 100 U/L (3-41); ALBUMIN/GLOBULIN RATIO 0.5 (1.0-2.7); ANION GAP 12 (5-15); ASPARTATE AMINO TRANSFERASE 78 U/L (5-40); CALCIUM 8.3 mg/dL (8.6-10.2); CARBON DIOXIDE 29 mEQ/L (20-30); CHLORIDE 88 mEQ/L (98-107); CREATININE 1.4 mg/dL (0.7-1.2); GLOMERULAR FILTRATION RATE > 60 mL/min (>60); HEMOLYSIS 4; POTASSIUM 4.1 mEQ/L (3.4-4.9); SODIUM 129 mEQ/L (135-145); TOTAL PROTEIN 6.8 g/dL (6.6-8.7)
[2016-12-27 22:08] LABS: TROPONIN I < 0.30 ng/mL (<=0.30)
[2016-12-27] MEDS ORDERED: Azithromycin 500 MG in NS 275 ML IV ONE (22:15)
[2016-12-27] MEDS ORDERED: cefTRIAXone 2 GM in NS 110 ML IVPB ONE (22:15)
[2016-12-27] MEDS ORDERED: Azithromycin Inj IV ONE (22:17)
[2016-12-27 22:18] LABS: CKMB 1.7 ng/mL (< 6.7)
[2016-12-27 22:29] LABS: BILIRUBIN,DIRECT 1.8 mg/dL (0.1-0.3)
[2016-12-27] MEDS ORDERED: Bumetanide 2.5mg/10ml Inj IVP ONE (22:30)
[2016-12-27] MEDS ORDERED: Oxycodone/Acetaminophen 5-325 ORAL ONE (22:30)
[2016-12-27] MEDS ORDERED: Miralax 17gm pkt ORAL PRN (22:45)
[2016-12-27] MEDS ORDERED: DuoNeb 0.5-3(2.5)mg/3ml neb HHN PRN (22:45)
[2016-12-27 23:00] VITALS: BP 101/40
[2016-12-27] MEDS ORDERED: Bumetanide 10 MG in D5W 60 ML IVLG SCH (23:30)
[2016-12-27] MEDS: Heparin 5000 units/ml inj SUBQ SCH ×2 (23:35→23:36)
[2016-12-27] MEDS: ALPRAZolam 0.25mg tab ORAL SCH (23:35)
[2016-12-28] VITALS (7 sets, daily range): BP systolic 89–110; BP diastolic 56–68
[2016-12-28] MEDS ORDERED: Aspirin Baby 81mg ORAL ONE (00:15)
[2016-12-28] MEDS: Heparin 5000 units/ml inj SUBQ SCH ×2 (09:41→09:45)
--- NOTE | 2016-12-28 10:08 | History and Physical ---
History of Present Illness General Date patient seen: Dec 28, 2016 Reason for Hospitalization: Edema Present Illness HPI 31 year old male with hx of severe decreased EF 20%, cardiomyopathy, HIV not on HAART, LV thrombus, anemia, with worsening lower extremity edema despite taking Bumex. Associated with chest pain on exertion. with cough, subjective fever/chills. Allergies: Coded Allergies: CODEINE (Unverified Allergy, Unknown, 09/08/16) FUROSEMIDE (Verified Allergy, Unknown, 12/27/16) LATEX (Verified Allergy, Unknown, 12/27/16) SHELLFISH DERIVED (Unverified Allergy, Unknown, 09/08/16) Medication History Scheduled Alprazolam* (Xanax*), 0.25 MG ORAL THREE TIMES A DAY, (Reported) Bumetanide* (Bumetanide*), 1 MG ORAL DAILY Furosemide* (Lasix*), 20 MG PO BID, (Reported) Potassium Chloride (Potassium Chloride), 10 MEQ PO BID, (Reported) Warfarin Sod* (Coumadin*), 1 MG ORAL DAILY, (Reported) Scheduled PRN Albuterol Sulfate (Ventolin Hfa), 1 PUFF Q6HR PRN for PRN, (Reported) Albuterol Sulfate* (Albuterol Sulfate Hhn*), 3 ML INH Q4H PRN for Shortness of Breath, (Reported) Patient History Healthcare decision maker Resuscitation status Advanced Directive on File Past Medical/Surgical History Past Medical/Surgical History: (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 (2) HIV (human immunodeficiency virus infection) Review of Systems All Other Systems: negative except mentioned in HPI Physical Exam General Appearance: WD/WN Lines, tubes and drains: peripheral HEENT: normocephalic, atraumatic Neck: non-tender, normal alignment Respiratory/Chest: chest wall non-tender, lungs clear Breasts: no masses Cardiovascular/Chest: normal peripheral pulses Abdomen: normal bowel sounds, non tender Genitourinary/Rectal: normal genital exam, normal rectal exam Extremities: normal range of motion Last 24 Hour Vital Signs Date Time Temp Pulse Resp B/P Pulse Ox O2 Delivery O2 Flow Rate FiO2 12/28/16 08:23 91 18 Room Air 21 12/28/16 08:00 97.7 96 18 106/59 96 Room Air 12/28/16 04:18 80 12/28/16 01:46 99.3 90 17 91/60 95 Room Air 12/28/16 01:46 99.3 90 17 89/56 95 Room Air 12/28/16 00:10 99.3 90 17 89/56 95 Room Air 12/27/16 23:37 99.3 12/27/16 23:00 99.3 102 17 101/40 95 Room Air 12/27/16 21:45 99.3 102 17 98/56 95 Room Air 12/27/16 20:47 99.3 102 17 94/56 95 Room Air 12/27/16 20:45 106 18 Room Air 12/27/16 20:24 99.5 106 18 90/50 94 Room Air Intake and Output 12/27/16 12/28/16 19:00 07:00 Intake Total 220 ml Balance 220 ml Intake Oral 220 ml Laboratory Tests Test 12/27/16 19:31 White Blood Count 8.2 K/UL (4.8-10.8) Red Blood Count 4.07 M/UL (4.70-6.10) L Hemoglobin 9.8 G/DL (14.2-18.0) L Hematocrit 31.9 % (42.0-52.0) L Mean Corpuscular Volume 78 FL (80-99) L Mean Corpuscular Hemoglobin 24.2 PG (27.0-31.0) L Mean Corpuscular Hemoglobin Concent 30.9 G/DL (32.0-36.0) L Red Cell Distribution Width 21.8 % (11.6-14.8) H Platelet Count 232 K/UL (150-450) Mean Platelet Volume 6.7 FL (6.5-10.1) Neutrophils (%) (Auto) 67.2 % (45.0-75.0) Lymphocytes (%) (Auto) 17.5 % (20.0-45.0) L Monocytes (%) (Auto) 13.4 % (1.0-10.0) H Eosinophils (%) (Auto) 0.4 % (0.0-3.0) Basophils (%) (Auto) 1.5 % (0.0-2.0) Sodium Level 129 mEQ/L (135-145) L Potassium Level 4.1 mEQ/L (3.4-4.9) Chloride Level 88 mEQ/L (98-107) L Carbon Dioxide Level 29 mEQ/L (20-30) Anion Gap 12 (5-15) Blood Urea Nitrogen 18 mg/dL (7-23) Creatinine 1.4 mg/dL (0.7-1.2) H Estimat Glomerular Filtration Rate > 60 mL/min (>60) Glucose Level 90 mg/dL (74-106) Calcium Level 8.3 mg/dL (8.6-10.2) L Total Bilirubin 2.9 mg/dL (0.0-1.2) H Direct Bilirubin 1.8 mg/dL (0.1-0.3) H Aspartate Amino Transf (AST/SGOT) 78 U/L (5-40) H Alanine Aminotransferase (ALT/SGPT) 100 U/L (3-41) H Alkaline Phosphatase 136 U/L (40-129) H Total Creatine Kinase 99 U/L (38-174) Creatine Kinase MB 1.7 ng/mL (< 6.7) Creatine Kinase MB Relative Index 1.7 Troponin I < 0.30 ng/mL (<=0.30) Pro-B-Type Natriuretic Peptide 6417 pg/mL (0-125) H Total Protein 6.8 g/dL (6.6-8.7) Albumin 2.5 g/dL (3.5-5.2) L Globulin 4.3 g/dL Albumin/Globulin Ratio 0.5 (1.0-2.7) L Height (Feet): 6 Height (Inches): 1.00 Weight (Pounds): 150 Medications Current Medications Medications (Trade) Dose Ordered Sig/Katie Route PRN Reason Start Time Stop Time Status Last Admin Dose Admin Acetaminophen (Tylenol) 650 mg Q4H PRN ORAL Fever 12/27/16 22:45 01/26/17 22:44 Albuterol/ Ipratropium 3 ml 3 ml Q4H PRN HHN Shortness of Breath 12/27/16 22:45 01/01/17 22:44 Alprazolam (Xanax) 0.25 mg THREE TIMES A DAY ORAL 12/28/16 09:00 01/04/17 08:59 Bumetanide/ Dextrose (Bumex/D5W) 100 ml @ 0 mls/hr Q0M IVLG 12/27/16 23:30 01/26/17 23:29 Dextrose (Dextrose 50%) STAT PRN IV Hypoglycemia 12/27/16 22:45 01/26/17 22:44 Heparin Sodium (Porcine) (Heparin 5000 units/ml) 5,000 units EVERY 12 HOURS SUBQ 12/28/16 09:00 01/27/17 08:59 12/28/16 09:41 Ondansetron HCl (Zofran) 4 mg Q6H PRN IVP Nausea & Vomiting 12/27/16 22:45 01/26/17 22:44 12/27/16 23:32 Polyethylene Glycol (Miralax) 17 gm DAILYPRN PRN ORAL Constipation 12/27/16 22:45 01/26/17 22:44 Temazepam (Restoril) 15 mg HSPRN PRN ORAL Insomnia 12/27/16 22:45 01/03/17 22:44 Assessment/Plan Problem List: (1) Pulmonary edema ICD Codes: J81.1 - Chronic pulmonary edema SNOMED: 51891144 (2) 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
--- NOTE | 2016-12-28 10:37 | Consultation ---
Consult Note Consult Note ID Dic # [id number] DAVID METZGER M.D. Dec 28, 2016 10:37
[2016-12-28] MEDS ORDERED: cefTRIAXone 1 GM in D5W 55 ML IVPB SCH (12:00)
[2016-12-28] MEDS ORDERED: Azithromycin 500 MG in D5W 275 ML IV SCH (13:00)
--- NOTE | 2016-12-28 13:30 | Diagnostic Imaging Report ---
Indication: Dyspnea Comparison: 12/22/16 A single view chest radiograph was obtained. Findings: Vague parenchymal density demonstrated at the right lung base. Findings are due to pneumonia. Please correlate clinically. Trace right pleural effusion is also likely present given slight blunting of the costophrenic angle. Cardiomegaly is again noted. Bones are unremarkable. Impression: Suspected right basilar pneumonia.
[2016-12-28] MEDS: ALPRAZolam 0.25mg tab ORAL SCH ×2 (14:00→18:27)
[2016-12-28] MEDS ORDERED: Bumetanide 10 MG in D5W 60 ML IVLG SCH (15:00)
--- NOTE | 2016-12-28 17:16 | Consultation ---
DATE OF CONSULTATION: INFECTIOUS DISEASE CONSULTATION CONSULTING PHYSICIAN: Jorge Magana M.D. REFERRING PHYSICIAN: Elisa Liu M.D. REASON FOR CONSULTATION: Evaluation of the patient for HIV, possible bronchitis, pneumonia, and antibiotic management. HISTORY OF PRESENT ILLNESS: The patient is a 31-year-old male, who was a very poor historian came to the hospital with chief complaint of lower extremity swelling. Also, he has been complaining of cough with sputum production. The patient is HIV positive. However, he did not give me a detailed information about that. He mentioned his HIV is undetectable while he has not been on any medications. I do not recall what is his CD4 count. PAST MEDICAL HISTORY: 1. History of HIV(? CD4 count and viral load), the patient is not on any HIV medication. 2. History of cardiomyopathy. 3. Hypertension. 4. COPD. 5. Asthma. 6. Anxiety. 7. Depression. ALLERGIES: Allergies to antibiotics. FAMILY HISTORY: Noncontributory. REVIEW OF SYSTEMS: The patient is not cooperative. SOCIAL HISTORY: The patient is not cooperative. MEDICATIONS: The patient is on Zithromax and Rocephin in the emergency room. PHYSICAL EXAMINATION: VITAL SIGNS: Temperature 97, blood pressure 106/59, pulse 63, and respiratory rate 18. HEENT: Mild conjunctivae. NECK: No lymphadenopathy. CHEST: Coarse breathing sounds. HEART: S1 and S2. ABDOMEN: Soft and nontender. EXTREMITIES: No cyanosis at this time with mild lower extremity edema. LABORATORY AND DIAGNOSTIC DATA: White blood cells 8.2, hemoglobin 9.8, and platelets 232,000. BUN 18, creatinine 1.4. ALT, AST, and alkaline phosphatase elevated. ASSESSMENT: The patient is a 31-year-old male with: 1. Human immunodeficiency virus. 2. Pneumonia/chronic obstructive pulmonary disease exacerbation/bronchitis. 3. Mild renal insufficiency. 4. Transaminitis. PLAN: 1. We will continue the patient on Zithromax and Rocephin. 2. Monitor CBC. 3. Monitor BMP. 4. Monitor blood and sputum culture. 5. We will follow on the chest x-ray result. 6. Monitor chest x-ray. 7. Monitor the patient's clinical course and laboratories. 8. CD4 count and viral load. 9. Based on the patient's clinical course and labs, we will do further recommendation. Thank you, Dr. Liu, for allowing me to participate in the care of this patient. I will follow the patient with you during this hospitalization. Jorge Magana M.D. DR: YULIYA JOB#: [id number] CC:
--- NOTE | 2016-12-28 18:32 | Cardiology Progress Note ---
Assessment/Plan Assessment/Plan 1. Chronic congestive heart failure with acute component. 2. Cardiomyopathy (likely nonischemic). 3. scleral icterus / jaundicne 4. Moderate pulmonary hypertension. 5. moderate mitral regurgitation and moderate tricuspid regurgitation). 6. Human immunodeficiency virus status. 7. History of asthma. 8. Iron deficiency anemia. 9. Hypertension. keep on diuretic whe bp allow use of arbs (not use acei due to cough) once lft abn addressed lwo walters bb for cm repeat trop ekg unchanged to reviwed echo ? etiology of jaundise [id number] Objective Last 24 Hour Vital Signs Date Time Temp Pulse Resp B/P Pulse Ox O2 Delivery O2 Flow Rate FiO2 12/28/16 16:00 97.8 92 17 110/64 96 Room Air 12/28/16 12:00 98.0 90 18 104/64 99 Room Air 12/28/16 08:23 91 18 Room Air 21 12/28/16 08:00 96 12/28/16 08:00 97.7 96 18 106/59 96 Room Air 12/28/16 04:18 80 12/28/16 01:46 99.3 90 17 91/60 95 Room Air 12/28/16 01:46 99.3 90 17 89/56 95 Room Air 12/28/16 00:10 99.3 90 17 89/56 95 Room Air 12/27/16 23:37 99.3 12/27/16 23:00 99.3 102 17 101/40 95 Room Air 12/27/16 21:45 99.3 102 17 98/56 95 Room Air 12/27/16 20:47 99.3 102 17 94/56 95 Room Air 12/27/16 20:45 106 18 Room Air 12/27/16 20:24 99.5 106 18 90/50 94 Room Air Intake and Output 12/27/16 12/28/16 19:00 07:00 Intake Total 220 ml Balance 220 ml Intake Oral 220 ml Laboratory Tests Test 12/27/16 19:31 White Blood Count 8.2 K/UL (4.8-10.8) Red Blood Count 4.07 M/UL (4.70-6.10) L Hemoglobin 9.8 G/DL (14.2-18.0) L Hematocrit 31.9 % (42.0-52.0) L Mean Corpuscular Volume 78 FL (80-99) L Mean Corpuscular Hemoglobin 24.2 PG (27.0-31.0) L Mean Corpuscular Hemoglobin Concent 30.9 G/DL (32.0-36.0) L Red Cell Distribution Width 21.8 % (11.6-14.8) H Platelet Count 232 K/UL (150-450) Mean Platelet Volume 6.7 FL (6.5-10.1) Neutrophils (%) (Auto) 67.2 % (45.0-75.0) Lymphocytes (%) (Auto) 17.5 % (20.0-45.0) L Monocytes (%) (Auto) 13.4 % (1.0-10.0) H Eosinophils (%) (Auto) 0.4 % (0.0-3.0) Basophils (%) (Auto) 1.5 % (0.0-2.0) Sodium Level 129 mEQ/L (135-145) L Potassium Level 4.1 mEQ/L (3.4-4.9) Chloride Level 88 mEQ/L (98-107) L Carbon Dioxide Level 29 mEQ/L (20-30) Anion Gap 12 (5-15) Blood Urea Nitrogen 18 mg/dL (7-23) Creatinine 1.4 mg/dL (0.7-1.2) H Estimat Glomerular Filtration Rate > 60 mL/min (>60) Glucose Level 90 mg/dL (74-106) Calcium Level 8.3 mg/dL (8.6-10.2) L Total Bilirubin 2.9 mg/dL (0.0-1.2) H Direct Bilirubin 1.8 mg/dL (0.1-0.3) H Aspartate Amino Transf (AST/SGOT) 78 U/L (5-40) H Alanine Aminotransferase (ALT/SGPT) 100 U/L (3-41) H Alkaline Phosphatase 136 U/L (40-129) H Total Creatine Kinase 99 U/L (38-174) Creatine Kinase MB 1.7 ng/mL (< 6.7) Creatine Kinase MB Relative Index 1.7 Troponin I < 0.30 ng/mL (<=0.30) Pro-B-Type Natriuretic Peptide 6417 pg/mL (0-125) H Total Protein 6.8 g/dL (6.6-8.7) Albumin 2.5 g/dL (3.5-5.2) L Globulin 4.3 g/dL Albumin/Globulin Ratio 0.5 (1.0-2.7) L BAUDILIO GROSSMAN Dec 28, 2016 18:32
--- NOTE | 2016-12-28 23:00 | Consultation ---
DATE OF CONSULTATION: 12/28/2016 REASON FOR EVALUATION: Chest pain. HISTORY OF PRESENT ILLNESS: This is a young gentleman with history of cardiomyopathy, HIV not on HAART. The patient previously was seen by me back a few months ago. At this time, he was noted to have questionable left ventricular thrombus and was started on anticoagulation, but elected to leave against medical advice. He comes back now because of persistent symptoms which have been for one and a half months where he was hospitalized at another place for a short period of time and presented to the hospital because of continued cough in the past few months. The cough is nonproductive, but it caused him to have pain in the chest and abdomen. His chest pain gets worse with coughing or deep breathing or twisting or turning. He had dyspnea on exertion. He has no PND. He has no orthopnea. There is occasional dizziness. No lightheadedness. Occasional palpitations. PAST MEDICAL HISTORY: Positive for history of congestive heart failure, acute on chronic decompensation, history of cardiomyopathy, history of questionable left ventricular thrombus and moderate to severe pulmonary hypertension, moderate mitral regurgitation, moderate tricuspid regurgitation, HIV, history of asthma, history of iron deficiency, hypertension, psychosis, and fatty liver. SOCIAL HISTORY: He smokes one pack of cigarettes. He occasionally drinks alcohol. Denies any drug use. REVIEW OF SYSTEMS: Gastrointestinal: He has had some nausea and vomiting. Genitourinary: Negative. Pulmonary: Symptoms of cough, nonproductive. Constitutional: Negative. Neurologic: Negative. PHYSICAL EXAMINATION: GENERAL: Shows to be a young male. EYES: Scleral icterus is noted. NECK: Supple. No jugular venous distention. LUNGS: Few crackles on the right side. CARDIAC: Regular rate and rhythm. Holosystolic regurgitant murmur. ABDOMEN: Soft and nontender. Positive bowel sounds. EXTREMITIES: A 1+ edema in the lower extremities, may be right more so than on the left. NEUROLOGIC: He is awake, alert, and responsive. LABORATORY AND DIAGNOSTIC DATA: Echocardiogram shows septal hypokinesis, anterior akinesis, global hypokinesis, ejection fraction of 10% to 15%, moderate mitral regurgitation, moderate diastolic relaxation abnormality, moderate tricuspid regurgitation, and pulmonary artery pressure is 49. EKG shows sinus rhythm with leftward axis. There is T-wave inversions in V4, V5 and V6. On direct comparison from August 2016 EKG in the ambulance performed by paramedics that remains really unchanged. His blood tests showed white count of 8.3, hemoglobin 9.8, and platelet count 232,000. Sodium 129, potassium 4.1, chloride 88, bicarbonate 29, BUN 18, creatinine 1.4, and glucose of 90. Calcium is 8.3. His bilirubin looks total of 2.9, and indirect of 1.8. Liver function tests, AST of 78, ALT of 100, and alkaline phosphatase 136. Troponin is negative on first occasion. ProBNP is 6400 compared to 6200 on prior hospitalization. ASSESSMENT: 1. Probable chronic congestive heart failure with an acute component. 2. Cardiomyopathy. 3. Scleral icterus/jaundice. 4. Moderate pulmonary hypertension. 5. Moderate mitral and tricuspid regurgitation. 6. Human immunodeficiency virus. 7. History of asthma. 8. Iron deficiency. 9. Hypertension. PLAN: Dr. Liu, this patient was seen in cardiac consultation. We will keep the patient on diuretic Bumex when blood pressure allows use of ARBs may be indicated. Low-dose beta-blockers for cardiomyopathy. Coreg will be started. ARBs will be addressed after the cause of the abnormal liver function test resolved as I do not want to cause hypotension and shock liver in response to identify that as a cause so down the line maybe ARBs. The cardiac enzymes will be repeated. EKG is unchanged. Echocardiogram to be reviewed. The etiology of his jaundice per workup from Dr. Liu's discretion. Wally Oh M.D. DR: ELINA JOB#: [id number] CC:
[2016-12-29] MEDS ORDERED: Bumetanide 2.5mg/10ml Inj IVP ONE (08:30)
[2016-12-29] MEDS ORDERED: Tubing IV Secondary IV ONE (08:54)
[2016-12-29] MEDS ORDERED: NS 275ml ONE (08:54)
--- NOTE | 2016-12-29 13:00 | Physician Query ---
PLEASE COMPLETE THE DOCUMENT BEFORE SIGNING Dear ____RENEE LEYVA___ Date: ____12/29/2016____ [employer] Name: ___Alejo Spencer____ [employer] Phone #___[phone]____ Exercise your independent professional judgment when responding to query. Question asked do not imply a particular answer is desired/expected Clinical Documentation States: "Heart Failure / CHF" documented in Consultation notes by Dr. Oh (2016): PAST MEDICAL HISTORY: Positive for history of congestive heart failure, acute on chronic decompensation, history of cardiomyopathy. ASSESSMENT: Probable chronic congestive heart failure with an acute component. Clinical Findings Show: BNP __6417 pg/ml Diuretic __IV: Bumetanide 10 mg____ Echocardiogram _ septal hypokinesis, anterior akinesis, global hypokinesis, ejection fraction of 10% to 15% Other Meds Please Clarify: Acuity [] Acute [] Chronic [] Acute on Chronic Type [] Systolic [] Diastolic [] Systolic & Diastolic (Combined) [] Left Heart failure [] Other: Etiology [] CHF due to Hypertension [] Cardiomyopathy [] Valvular Heart Disease [] Coronary Artery Disease [] Unable to determine [] Other: Condition Present on Admission: [] Yes [] No []Clinically Undeterminable Please also document in your Progress Notes and/or Discharge Summary and indicate if the condition was present on admission. RENEE LEYVA M.D. Date & Time [facility]
--- NOTE | 2016-12-30 18:24 | Discharge Summary ---
Discharge Summary Hospital Course Date of Admission Dec 28, 2016 at 00:37 Date of Discharge Dec 29, 2016 at 08:55 Admitting Diagnosis chest pain HPI Chandler Muse is a 31 year old male who was admitted on Dec 28, 2016 at 00:37 for Chest Pain Hospital Course [id number] Discharge Discharge Disposition Patient left AMA Discharge Diagnoses: Lisa Nixon NP Dec 30, 2016 18:24
--- NOTE | 2016-12-31 05:30 | Discharge Summary 2 SIG ---
DATE OF ADMISSION: 12/28/2016 DATE OF DISCHARGE: 12/29/2016 CONSULTANTS: 1. Wally Oh M.D. 2. Jorge Magana M.D. BRIEF HOSPITAL COURSE: The patient is a 31-year-old male with history of severe cardiomyopathy with ejection fraction of 20%, HIV not on HAART, LV thrombus, anemia and worsening lower extremity edema despite being on Bumex, presented to ED with edema and chest pain on exertion. On evaluation at ED, chest x-ray again showed right lower lobe pneumonia. EKG done showed normal sinus rhythm with V5 and V6 with deep T-wave and ST depression in V5. He was given aspirin. Initial troponin was negative. There was mild elevation in BNP. IV Bumex was given. Liver transaminases were elevated. AST 70, ALT 100, total bilirubin 2.9 and direct bilirubin 1.8. Abdominal ultrasound was ordered, however, the patient refused. He was admitted to telemetry for pulmonary edema, cardiomyopathy, HIV and pneumonia. He was pancultured and was given Zithromax and Rocephin. Echocardiogram showed septal hypokinesis, anterior akinesis, global hypokinesis, ejection fraction of 10% to 15% with moderate mitral regurgitation, moderate diastolic relaxation, moderate tricuspid regurgitation and pulmonary artery pressure of 49. There was T-wave inversions in leads V4, V5, and V6. The patient has chronic congestive heart failure with acute component and was continued on Bumex and low-dose beta chandra. However, full treatment was not carried out as the patient signed out against medical advice. FINAL DIAGNOSES: 1. Pulmonary edema. 2. Cardiomyopathy. 3. Human immunodeficiency virus. 4. Pneumonia. 5. Acute on chronic diastolic and systolic heart failure. 6. Pulmonary hypertension. 7. Moderate mitral and tricuspid regurgitation. 8. Iron deficiency. 9. Hypertension. 10. Elevated liver transaminases. 11. Noncompliance, as the patient signed out against medical advice. Elisa Liu M.D. I have been assigned to dictate discharge summary on this account and I was not involved in the patient's management. Lisa Nixon N.P. DR: SANJUANA JOB#: [id number] CC:
== END 2016-12-29 08:55 | disposition left against medical advice (07) | DRG 139 ==
LOC: EMR 21:06 → EDBEDREQ 12-28 00:27 → 2E 12-28 00:37 → EDBEDREQ 12-28 01:43
DX: J18.9 Pneumonia, unspecified organism (principal); I50.43 Acute on chronic combined systolic (congestive) and diastolic (congestive) heart failure; I42.4 Endocardial fibroelastosis; I27.2 Other secondary pulmonary hypertension; J44.9 Chronic obstructive pulmonary disease, unspecified; R17 Unspecified jaundice; R74.0 Nonspecific elevation of levels of transaminase and lactic acid dehydrogenase [LDH]; D64.9 Anemia, unspecified; I34.0 Nonrheumatic mitral (valve) insufficiency; F17.210 Nicotine dependence, cigarettes, uncomplicated; I11.0 Hypertensive heart disease with heart failure; N28.9 Disorder of kidney and ureter, unspecified; Z72.0 Tobacco use; Z91.040 Latex allergy status; Z88.1 Allergy status to other antibiotic agents
CPT/HCPCS: 36415; 71010; 80053; 82248; 82550; 82553; 83880; 84484; 85025; 93005; 93306; 94664; J2405

== ENCOUNTER 2017-01-09 13:57 | Inpatient (IN) | payer OTHER ==
[~2017-01-09] VITALS: Ht 185.4 cm; Wt 83.9 kg
[2017-01-09 13:57] VITALS: BP 110/54
[2017-01-09 14:50] LABS: BASOPHILS % (AUTO) 1.5 % (0.0-2.0); EOSINOPHILS % (AUTO) 0.2 % (0.0-3.0); LYMPHOCYTES % (AUTO) 30.7 % (20.0-45.0); MEAN CORPUSCULAR HEMOGLOBIN 22.5 PG (27.0-31.0); MEAN CORPUSCULAR HGB CONC 29.4 G/DL (32.0-36.0); MEAN CORPUSCULAR VOLUME 77 FL (80-99); MEAN PLATELET VOLUME 6.2 FL (6.5-10.1); MONOCYTES % (AUTO) 12.1 % (1.0-10.0); NEUTROPHILS % (AUTO) 55.5 % (45.0-75.0); PLATELET COUNT 275 K/UL (150-450); RED BLOOD COUNT 5.16 M/UL (4.70-6.10); RED CELL DISTRIBUTION WIDTH 20.7 % (11.6-14.8); WHITE BLOOD COUNT 6.1 K/UL (4.8-10.8)
[2017-01-09 15:10] LABS: TROPONIN I < 0.30 ng/mL (<=0.30)
[2017-01-09] MEDS ORDERED: Albuterol ud Inhalation HHN ONE (15:30)
[2017-01-09] MEDS ORDERED: Calcium Gluconate 1gm/10ml vial IVP ONE (15:30)
[2017-01-09] MEDS: Sodium Polystyrene Sulfonate 15gm Powder ORAL ONE ×2 (15:30→15:31)
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
[2017-01-09 16:03] LABS: ALANINE AMINOTRANSFERASE 35 U/L (3-41); ALBUMIN/GLOBULIN RATIO 0.5 (1.0-2.7); ANION GAP 16 (5-15); ASPARTATE AMINO TRANSFERASE 57 U/L (5-40); CARBON DIOXIDE 24 mEQ/L (20-30); CHLORIDE 87 mEQ/L (98-107); CREATININE 1.2 mg/dL (0.7-1.2); GLOMERULAR FILTRATION RATE > 60 mL/min (>60); HEMOLYSIS 5; POTASSIUM 4.2 mEQ/L (3.4-4.9); SODIUM 127 mEQ/L (135-145); TOTAL PROTEIN 7.9 g/dL (6.6-8.7)
[2017-01-09 16:23] LABS: BILIRUBIN,DIRECT 2.7 mg/dL (0.1-0.3)
[2017-01-09] MEDS ORDERED: UNOBMED (17:18)
[2017-01-09 18:07] VITALS: BP 98/71
[2017-01-09] MEDS ORDERED: DuoNeb 0.5-3(2.5)mg/3ml neb HHN PRN (18:45)
[2017-01-09] MEDS ORDERED: Miralax 17gm pkt ORAL PRN (18:45)
[2017-01-09] MEDS ORDERED: Ketorolac 30mg Inj IM PRN (18:45)
[2017-01-09 19:13] VITALS: BP 97/71
[2017-01-09] MEDS: Metolazone 5mg tab ORAL SCH (20:20)
[2017-01-09] MEDS: Heparin 5000 units/ml inj SUBQ SCH (20:22)
[2017-01-09] MEDS: Bumetanide 2.5mg/10ml Inj IVP SCH (20:22)
[2017-01-09] MEDS: ALPRAZolam 0.25mg tab ORAL SCH (20:22)
[2017-01-09 20:30] VITALS: BP 100/66
[2017-01-09 23:47] VITALS: BP 100/57
[2017-01-10 04:00] VITALS: BP 100/50
[2017-01-10] MEDS: Bumetanide 2.5mg/10ml Inj IVP SCH ×4 (06:00→21:42)
[2017-01-10] MEDS ORDERED: LORazepam Inj 2mg/ml 1ml IV PRN ×2 (07:00→13:00)
[2017-01-10 08:00] VITALS: BP 112/78
[2017-01-10] MEDS: Metolazone 5mg tab ORAL SCH ×2 (09:00→14:54)
[2017-01-10] MEDS: ALPRAZolam 0.25mg tab ORAL SCH ×3 (09:00→17:40)
[2017-01-10] MEDS ORDERED: Meningococcal Polysacc Vaccine Inj SUBQ ONE (09:00)
[2017-01-10] MEDS ORDERED: Pneumococcal Vaccine 25mcg/0.5ml IM ONE (09:00)
[2017-01-10] MEDS: Heparin 5000 units/ml inj SUBQ SCH ×2 (09:00→21:00)
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
[2017-01-10 12:16] LABS: EOSINOPHILS % (AUTO) 0.9 % (0.0-3.0); LYMPHOCYTES % (AUTO) 20.6 % (20.0-45.0); MEAN CORPUSCULAR HEMOGLOBIN 23.9 PG (27.0-31.0); MEAN CORPUSCULAR HGB CONC 31.7 G/DL (32.0-36.0); MEAN CORPUSCULAR VOLUME 75 FL (80-99); MEAN PLATELET VOLUME 6.1 FL (6.5-10.1); MONOCYTES % (AUTO) 12.4 % (1.0-10.0); NEUTROPHILS % (AUTO) 65.1 % (45.0-75.0); PLATELET COUNT 211 K/UL (150-450); RED BLOOD COUNT 3.95 M/UL (4.70-6.10); RED CELL DISTRIBUTION WIDTH 20.3 % (11.6-14.8); WHITE BLOOD COUNT 5.3 K/UL (4.8-10.8)
[2017-01-10] MEDS ORDERED: Ketorolac 30mg Inj IM PRN (12:45)
[2017-01-10 12:50] VITALS: BP 107/61
[2017-01-10 12:57] LABS: ALANINE AMINOTRANSFERASE 26 U/L (3-41); ALBUMIN/GLOBULIN RATIO 0.6 (1.0-2.7); ANION GAP 13 (5-15); ASPARTATE AMINO TRANSFERASE 41 U/L (5-40); CALCIUM 8.4 mg/dL (8.6-10.2); CARBON DIOXIDE 29 mEQ/L (20-30); CHLORIDE 86 mEQ/L (98-107); CREATININE 1.3 mg/dL (0.7-1.2); GLOMERULAR FILTRATION RATE > 60 mL/min (>60); HEMOLYSIS 0; PHOSPHORUS 3.3 mg/dL (2.5-4.8); POTASSIUM 3.1 mEQ/L (3.4-4.9); SODIUM 128 mEQ/L (135-145); TOTAL PROTEIN 6.2 g/dL (6.6-8.7)
[2017-01-10 12:58] LABS: TROPONIN I < 0.30 ng/mL (<=0.30)
[2017-01-10] MEDS: LORazepam Inj 2mg/ml 1ml IV PRN ×2 (13:02→21:37)
[2017-01-10 13:18] LABS: BILIRUBIN,DIRECT 1.9 mg/dL (0.1-0.3)
[2017-01-10] MEDS ORDERED: DuoNeb 0.5-3(2.5)mg/3ml neb HHN PRN (14:45)
[2017-01-10] MEDS ORDERED: KCl 10% 40mEq/30ml liquid NG ONE (15:00)
[2017-01-10] MEDS: Meningococcal Polysacc Vaccine Inj SUBQ ONE ×2 (15:45→16:50)
[2017-01-10] MEDS: Pneumococcal Vaccine 25mcg/0.5ml IM ONE ×2 (15:45→16:51)
[2017-01-10 16:00] VITALS: BP 100/50
[2017-01-10] MEDS ORDERED: Miralax 17gm pkt ORAL PRN (18:45)
--- NOTE | 2017-01-10 19:33 | History and Physical ---
History of Present Illness General Reason for Hospitalization: Generalized Weakness Present Illness Allergies: Coded Allergies: CODEINE (Unverified Allergy, Unknown, 09/08/16) FUROSEMIDE (Verified Allergy, Unknown, 12/27/16) LATEX (Verified Allergy, Unknown, 12/27/16) SHELLFISH DERIVED (Unverified Allergy, Unknown, 09/08/16) Medication History Scheduled Alprazolam* (Xanax*), 0.25 MG ORAL THREE TIMES A DAY, (Reported) Bumetanide* (Bumetanide*), 1 MG ORAL DAILY Furosemide* (Lasix*), 20 MG PO BID, (Reported) Potassium Chloride (Potassium Chloride), 10 MEQ PO BID, (Reported) Warfarin Sod* (Coumadin*), 1 MG ORAL DAILY, (Reported) Scheduled PRN Albuterol Sulfate (Ventolin Hfa), 1 PUFF Q6HR PRN for PRN, (Reported) Albuterol Sulfate* (Albuterol Sulfate Hhn*), 3 ML INH Q4H PRN for Shortness of Breath, (Reported) Miscellaneous Medications Unable to Obtain Medications (Unable To Obtain Meds), (Reported) Patient History Healthcare decision maker Resuscitation status Full Code Advanced Directive on File Physical Exam Last 24 Hour Vital Signs Date Time Temp Pulse Resp B/P Pulse Ox O2 Delivery O2 Flow Rate FiO2 01/10/17 16:00 97.1 91 19 100/50 93 Room Air 01/10/17 12:50 97.6 94 20 107/61 99 Room Air 01/10/17 08:00 96.8 99 20 112/78 99 Room Air 01/10/17 04:00 98.1 94 18 100/50 93 Room Air 01/10/17 00:00 101 01/09/17 23:47 97.6 111 20 100/57 90 Room Air 01/09/17 20:30 97.8 108 18 100/66 93 Room Air Intake and Output 01/09/17 01/10/17 18:59 06:59 Intake Total 520 ml 800 ml Balance 520 ml 800 ml Intake Oral 220 ml 800 ml IV Total 300 ml # Voids 2 Laboratory Tests Test 01/10/17 04:25 01/10/17 11:15 01/10/17 11:40 Urine Opiates Screen Negative (NEGATIVE) Urine Barbiturates Screen Negative (NEGATIVE) Phencyclidine (PCP) Screen Negative (NEGATIVE) Urine Amphetamines Screen Positive (NEGATIVE) H Urine Benzodiazepines Screen Negative (NEGATIVE) Urine Cocaine Screen Negative (NEGATIVE) Urine Marijuana (THC) Screen Negative (NEGATIVE) Sodium Level 128 mEQ/L (135-145) L Potassium Level 3.1 mEQ/L (3.4-4.9) L Chloride Level 86 mEQ/L (98-107) L Carbon Dioxide Level 29 mEQ/L (20-30) Anion Gap 13 (5-15) Blood Urea Nitrogen 23 mg/dL (7-23) Creatinine 1.3 mg/dL (0.7-1.2) H Estimat Glomerular Filtration Rate > 60 mL/min (>60) Glucose Level 125 mg/dL (74-106) H Calcium Level 8.4 mg/dL (8.6-10.2) L Phosphorus Level 3.3 mg/dL (2.5-4.8) Total Bilirubin 3.0 mg/dL (0.0-1.2) H Direct Bilirubin 1.9 mg/dL (0.1-0.3) H Aspartate Amino Transf (AST/SGOT) 41 U/L (5-40) H Alanine Aminotransferase (ALT/SGPT) 26 U/L (3-41) Alkaline Phosphatase 129 U/L (40-129) Troponin I < 0.30 ng/mL (<=0.30) Pro-B-Type Natriuretic Peptide 4921 pg/mL (0-125) H Total Protein 6.2 g/dL (6.6-8.7) L Albumin 2.5 g/dL (3.5-5.2) L Globulin 3.7 g/dL Albumin/Globulin Ratio 0.6 (1.0-2.7) L White Blood Count 5.3 K/UL (4.8-10.8) Red Blood Count 3.95 M/UL (4.70-6.10) L Hemoglobin 9.4 G/DL (14.2-18.0) L Hematocrit 29.8 % (42.0-52.0) L Mean Corpuscular Volume 75 FL (80-99) L Mean Corpuscular Hemoglobin 23.9 PG (27.0-31.0) L Mean Corpuscular Hemoglobin Concent 31.7 G/DL (32.0-36.0) L Red Cell Distribution Width 20.3 % (11.6-14.8) H Platelet Count 211 K/UL (150-450) Mean Platelet Volume 6.1 FL (6.5-10.1) L Neutrophils (%) (Auto) 65.1 % (45.0-75.0) Lymphocytes (%) (Auto) 20.6 % (20.0-45.0) Monocytes (%) (Auto) 12.4 % (1.0-10.0) H Eosinophils (%) (Auto) 0.9 % (0.0-3.0) Basophils (%) (Auto) 1.0 % (0.0-2.0) Height (Feet): 6 Height (Inches): 1.00 Weight (Pounds): 184 Medications Current Medications Medications (Trade) Dose Ordered Sig/Katie Route PRN Reason Start Time Stop Time Status Last Admin Dose Admin Acetaminophen (Tylenol) 650 mg EVERY 6 HOURS PRN ORAL Mild Pain/Temp > 100.5 01/10/17 18:00 02/09/17 17:59 Albuterol/ Ipratropium (DuoNeb 0.5-3(2.5)mg/3ml) 3 ml Q4H PRN HHN Shortness of Breath 01/10/17 14:45 01/15/17 14:44 Alprazolam (Xanax) 0.25 mg THREE TIMES A DAY ORAL 01/10/17 13:00 01/17/17 12:59 01/10/17 17:40 Bumetanide (Bumex) 1 mg EVERY 8 HOURS IVP 01/10/17 14:00 02/09/17 13:59 01/10/17 15:18 Dextrose (Dextrose 50%) STAT PRN IV Hypoglycemia 01/10/17 18:45 02/09/17 18:44 Fluoxetine HCl (PROzac) 20 mg DAILY ORAL 01/11/17 09:00 02/10/17 08:59 Heparin Sodium (Porcine) (Heparin 5000 units/ml) 5,000 units EVERY 12 HOURS SUBQ 01/10/17 21:00 02/09/17 20:59 Ketorolac Tromethamine (Toradol 30mg) 15 mg Q6H PRN IM pain 4 - 10 01/10/17 12:45 01/14/17 12:44 Lorazepam (Ativan 2mg/ml 1ml) 1 mg EVERY 4 HOURS PRN IV For Anxiety 01/10/17 13:00 01/17/17 12:59 01/10/17 13:02 Metolazone (Zaroxolyn) 5 mg Q24H ORAL 01/10/17 13:30 02/09/17 13:29 01/10/17 14:54 Ondansetron HCl (Zofran) 4 mg Q6H PRN IVP Nausea & Vomiting 01/10/17 12:45 02/09/17 12:44 Polyethylene Glycol (Miralax) 17 gm DAILYPRN PRN ORAL Constipation 01/10/17 18:45 02/09/17 18:44 Risperidone (RisperDAL) 2 mg BEDTIME ORAL 01/10/17 21:00 02/09/17 20:59 Temazepam (Restoril) 15 mg HSPRN PRN ORAL Insomnia 01/10/17 18:45 01/17/17 18:44 RENEE LEYVA Jan 10, 2017 19:33
[2017-01-10 20:00] VITALS: BP 100/67
[2017-01-10 23:45] VITALS: BP 103/55
[2017-01-11 04:00] VITALS: BP 100/53
[2017-01-11] MEDS: Bumetanide 2.5mg/10ml Inj IVP SCH ×2 (05:58→14:00)
[2017-01-11 08:27] VITALS: BP 121/60
[2017-01-11] MEDS: Heparin 5000 units/ml inj SUBQ SCH (09:00)
[2017-01-11] MEDS: ALPRAZolam 0.25mg tab ORAL SCH ×2 (09:51→13:00)
[2017-01-11] MEDS: LORazepam Inj 2mg/ml 1ml IV PRN (11:47)
[2017-01-11 12:05] VITALS: BP 125/65
[2017-01-11] MEDS: Metolazone 5mg tab ORAL SCH (13:30)
[2017-01-11 13:34] VITALS: BP 129/57
--- NOTE | 2017-01-12 14:19 | Diagnostic Imaging Report ---
APPROVED REPORT CPT Code: 40665 Present Symptoms Comments: Swelling RIGHT LEG: Venous imaging reveals a patent deep venous system. There is no evidence of thrombus within the femoral, popliteal or tibial segments. The greater saphenous vein is also within normal limits. Doppler indicates normal spontaneous flow within these segments.
--- NOTE | 2017-01-13 11:05 | Discharge Summary ---
Discharge Summary Hospital Course Date of Admission Jan 09, 2017 at 16:21 Date of Discharge Jan 11, 2017 at 14:50 Admitting Diagnosis weakness/hyperK HPI Chandler Muse is a 31 year old male who was admitted on Jan 09, 2017 at 16:21 for Weakness/Hyperk Hospital Course 1977790 Discharge Discharge Disposition Patient left AMA Discharge Diagnoses: Lisa Nixon NP Jan 13, 2017 11:04
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
== END 2017-01-11 14:50 | disposition left against medical advice (07) | DRG 194 ==
LOC: EDBD 13:57 → EDUNIT# 15:42 → EMR 15:42 → 2E 16:21 → EDBEDREQSVC 17:15 → EDBEDREQ 17:58 → 2E 19:42 → 4W 01-10 11:45
DX: I50.43 Acute on chronic combined systolic (congestive) and diastolic (congestive) heart failure (principal); F15.159 Other stimulant abuse with stimulant-induced psychotic disorder, unspecified; Z91.19 Patient's noncompliance with other medical treatment and regimen; Z88.6 Allergy status to analgesic agent; Z88.8 Allergy status to other drugs, medicaments and biological substances
CPT/HCPCS: 36415; 71010; 80053; 80069; 80300; 82248; 82550; 82553; 83880; 84484; 85025; 90732; 93971; 94640; 94664